=== PATIENT | male | born 1935 | race Caucasian/White ===

== ENCOUNTER 2016-11-20 06:02 | Inpatient (IN) | payer OTHER ==
[2016-11-20] MEDS ORDERED: NS 1,000 ML IV ONE ×3 (06:07→07:29)
[2016-11-20] MEDS ORDERED: ONDANSETRON 4 MG/2 ML VIAL IVP ONE (06:07)
--- NOTE | 2016-11-20 06:07 | EDPHY ---
H & P Source: Patient, EMS - Medical/Surgical History Hx Diabetes: Yes Hx Cardiac Disease: Yes Other PMH: HTN, Cabg, DM, chronic back pain, prostate issues, syncope - Social History Smoking Status: Former smoker <Claudio Chairez - Last Filed: 11/20/16 21:12> <Cholo Rebolledo - Last Filed: 11/22/16 07:17> HPI/ROS: HPI CHIEF COMPLAINT: Vomiting HISTORY OF PRESENT ILLNESS: this patient very pleasant 81-year-old male history atrial flutter, syncope, bradycardia, hypertension, hyperlipidemia, coronary artery disease, pacemaker, CABG, takes daily aspirin but denies taking any other blood thinners, presents emergency room by EMS at 6 o'clock in the morning for multiple episodes of vomiting. Patient tells me that he had a dental appointment had one of his front tooth worked on and was at home around 1 :00 a.m. he start having nausea and multiple episodes of vomiting. He tells me vomited 4 times. It was black tar a coffee ground. Denies having a black tarry bowel movement this morning. He states he has persistent nausea. He denies chest pain or shortness of breath. He did have some lightheadedness with dizziness earlier however this resolved. His main complaint at this time is nausea. Does take aspirin denies any other blood thinner, denies recent use of Motrin or Advil. Denies history of GI bleed or peptic ulcer disease. It is noted the history review of systems may be limited as the patient when I asked him what year it is tells me it is year 3000. Unknown if underlying cognitive decline ordered dementia. Past Medical History: Hypertension, hyperlipidemia, atrial flutter, syncope, bradycardia, coronary disease, pacemaker Past Surgical History: Left chest pacemaker, CABG Social History: Lives at [facility] Family History: Noncontributory ROS REVIEW OF SYSTEMS: A comprehensive 10 point review of systems is otherwise negative aside from elements mentioned in the history of present illness. Exam Constitutional triage nursing summary reviewed, vital signs reviewed, awake/ alert. Eyes normal conjunctivae and sclera, EOMI, PERRLA. HENT oropharynx dark black blood present throughout the oropharynx as well as around the mouth. normal inspection, atraumatic, moist mucus membranes, no epistaxis, neck supple/ no meningismus, no raccoon eyes. Respiratory clear to auscultation bilaterally, normal breath sounds, no respiratory distress, no wheezing. Cardiovascular rate normal, regular rhythm, no murmur, no edema, distal pulses normal. Gastrointestinal soft, non-tender, no rebound, no guarding, normal bowel sounds, no distension, no pulsatile mass. Genitourinary no CVA tenderness. Musculoskeletal no midline vertebral tenderness, full range of motion, no calf swelling, no tenderness of extremities, no meningismus, good pulses, neurovascularly intact. Skin pink, warm, & dry, no rash, skin atraumatic. Neurologic awake, alert and oriented x 3, AAOx3, moves all 4 extremities equally, motor intact, sensory intact, CN II-XII intact, normal cerebellar, normal vision, normal speech. Psychiatric normal mood/affect. Heme/Lymph/Immune no lymphadenopathy. Differential Diagnosis: Includes but is not limited to in a particular order, upper GI bleed, peptic ulcer disease, blood loss anemia, esophagitis, gastritis Medical Decision Making: This patient be placed on full air sampling and monitoring, patient have 2 large-bore IVs established. He will be typed and screened. He will need a chest x-ray and EKG. He will be started on Protonix bolus and Protonix drip. He is obviously having a GI bleed. He will need to be admitted for this. Re-evaluation: 0617: currently at this time this patient is hemodynamically stable no acute distress. Blood pressure stable. He is not actively vomiting blood at this time. Patient will need to be admitted to the hospital for GI bleed. Gastroenterology consult. 0629AM: There is no this patient's lactic acid upon arrival is 6.0. This is not indication of sepsis however this is indication of a series GI bleed. Patient has 2 large-bore IVs established receive a 2 L fluid bolus. Will check an H&H will be typed and screen. 0643: Re-examination at this time this patient remains hemodynamically stable blood pressure stable. He has not had any active bleeding here. His H&H have been reviewed his lactic acid is elevated at 6. This is not from sepsis most likely from GI bleed. He has received 2 L of fluid is been typed and screen. He is on Protonix drip and Protonix bolus. Patient be admitted to the step- down unit for close observation. His chest x-ray and CT scan are pending at this time. His abdomen is soft. 0700: I spoke with Dr. Tristan who will admit the patient. 0700: Spoke with Dr. Leon who will see the patient requests the patient be NPO. Plan for scope today. 0702: ED x-ray chest: one view: pacemaker present left chest, negative for acute cardiopulmonary disease. Image interpreted by myself. CT scan of the abdomen pelvis without IV contrast. The results of the study are no free air no evidence of duodenal ulcer perforation The study was read by Dr. Castro I viewed the images myself on the PACS system. 0728AM: Spoke with the patient's daughter at bedside she does tell me he has a longstanding history of alcohol use liver cirrhosis and has remote history of esophageal varices. Due to this new history will place the patient on octreotide drip just in case he has esophageal varices that is causing this hematemesis. Again at this time this patient is hemodynamically stable no active bleeding here vomiting of blood here. Patient be admitted to step-down unit for close observation GI has been consult hospitalist service been consult. Patient hemodynamically stable for Step-Down Unit. Is noted this patient's lactic acid was elevated 6 it is down to 4 after 2 L of normal saline IV fluid. He does not have elevated lactic due to sepsis is most likely a elevated lactic acid due to under profusion GI bleed. Patient signed over to Dr. Rebolledo at 7am shift change. At this time 7AM. Patient is hemodynamically stable. No active bleeding. Type and Screen. Lactic trending down. H/H stable. No vomiting blood. Getting IV Fluids. On 3rd Liter. HyperKalemia Treated with Insuling and fluids. Most likely HyperKalemia due to Acidosis/Dehydration/ GIB causing Acidosis due to Under Perfusion state. Critical Care: Total Critical Care Time Spent Managing this Patient: 65 Minutes. This time was spent Exclusively with this patient. This Care was exclusive of procedures. The Organ System/life at risk was Gastrointestinal, Cardiac. This Patient was in Critical Condition because Acute GIB, Hyperkalemia (Claudio Chairez) Constitutional: Initial Vital Signs Temperature (C) 36.6 C 11/20/16 06:02 Heart Rate 112 H 11/20/16 06:02 Respiratory Rate 16 11/20/16 06:02 Blood Pressure 101/69 11/20/16 06:02 O2 Sat (%) 92 11/20/16 06:02 O2 Delivery Mode Room Air O2 (L/minute) 2 Allergies/Adverse Reactions: Penicillins Allergy (Verified 11/20/16 08:29) Rash Home Medications: Medication Instructions Recorded Apixaban [Eliquis] 5 mg PO BID 02/03/16 Aspirin [Aspirin 81mg (*)] 81 mg PO DAILY 02/03/16 Insulin Glargine [Lantus 100 32 units SC DAILY 02/03/16 UNITS/ML (*)] Oxybutynin Chloride [Ditropan Xl] 10 mg PO HS 02/03/16 Pravastatin Sodium [Pravachol] 5 mg PO DAILY 02/03/16 metFORMIN HCL [Glucophage 500 mg 1,000 mg PO BIDMEAL 02/03/16 (*)] Acetaminophen [Tylenol ES 500 mg 1,000 mg PO HS 11/20/16 (*)] Lisinopril [Zestril 5 mg (*)] 5 mg PO DAILY 11/20/16 Medical Decision Making <Claudio Chairez - Last Filed: 11/20/16 21:12> <Cholo Rebolledo - Last Filed: 11/22/16 07:17> Other Provider: 0700: I took over care of this patient at shift change from Dr. Chairez. He is awaiting a bed upstairs for GI bleed. Potassium is elevated, but kidney function is normal. 1020: IV insulin drip and IV TXA administered. Dr. Leon, GI, assessed patient in the ED. He plans to take him for endoscopy tomorrow if his vitals remain stable. He had another episode of profuse coffee ground emesis while Dr. Leon was here. Patient has been admitted to Dr. Pedroza, hospitalist, but there are no beds available at this time so he will be boarding in the ED. 1104: I was called into the room emergently by RN for sudden abnormal rhythm and brief period of unconsciousness after vomiting. He is alert upon my assessment and tachycardic around 130. EKG is pending. Rhythm strip seems to show a period of time when his pacer stopped working during vomiting. 4mg IV Zofran administered. 1106: The 12 lead EKG was interpreted by myself. EKG is difficult to interpret. Looks like it may be a junctional tachycardia rate 118. Rhythm is no longer paced compared to EKG at 06:00 this morning. See hard copy and/or "tracemaster" electronic copy for interpretation. 1113: Consulted with Dr. Pedroza and updated her on patient condition. Dr. Castro, cardiology, will consult. Pacemaker reps have been contacted. 1125: Consulted with Dr. Castro. He reviewed EKGs. The patient's unpaced EKG shows accelerated junctional rhythm. Dr. Castro recommends Mg level and will follow his admission. 1143: Repeat ISTAT shows Na 143, K 4.8, Hct 27, and BGL 334. Plan to increase insulin drip from 6 to 10 units per hour with repeat ISTAT in 30 minutes. 1218: RN reports patient is becoming increasingly somnolent and has vomited another 500mL of coffee ground emesis. 1 unit PRBCs, 2 units FFP, and 1 unit platelets ordered. Patient has been crossed for 2 units PRBCs, but plan for 1 unit to start. Most recent ISTAT shows Hct 29. 1242: Consulted with Dr. Leon, GI, to update him on patient condition. 1340: FFP apparently got stuck in the tube system on its way from pharmacy, so patient has not received it yet and he is currently being transported to the floor. Accepting RN is aware patient still needs to receive FFP as soon as possible. Patient with the emergency department in the much more stable condition with better vital signs improved electrolytes and blood sugar and lactate. I spent a total of 3.5 hours of critical care time including but not limited to obtaining history, performing serial physical exams, ordering interventions and at the bedside monitoring those interventions, collecting and interpreting tests and discussion with numerous consultants (GI, Cardiology, Hospitalist, blood bank...) but not including time spent performing procedures. (Cholo Rebolledo) - Data Points Laboratory Results: Laboratory Results 11/20/16 06:15 11/20/16 06:15 Medications Given: Discontinued Medications Sodium Chloride (Ns) 1,000 mls @ 0 mls/hr IV ONCE ONE PRN Reason: Wide Open Stop: 11/20/16 06:08 Last Admin: 11/20/16 06:23 Dose: 1,000 mls Pantoprazole Sodium 40 mg/ (Sodium Chloride) 100 mls @ 200 mls/hr IV EDNOW ONE Stop: 11/20/16 06:37 Last Admin: 11/20/16 06:20 Dose: 100 mls Pantoprazole Sodium 80 mg/ (Sodium Chloride) 100 mls @ 10 mls/hr IV Q10H HANNAH Stop: 05/19/17 06:29 Last Admin: 11/20/16 06:48 Dose: 100 mls Sodium Chloride (Ns) 1,000 mls @ 0 mls/hr IV ONCE ONE PRN Reason: Wide Open Stop: 11/20/16 06:28 Last Admin: 11/20/16 06:40 Dose: 1,000 mls Phytonadione 10 mg/ Sodium (Chloride) 51 mls @ 102 mls/hr IV EDNOW ONE Stop: 11/20/16 07:19 Last Admin: 11/20/16 07:45 Dose: 51 mls Sodium Chloride (Ns) 1,000 mls @ 0 mls/hr IV ONCE ONE PRN Reason: Wide Open Stop: 11/20/16 07:30 Last Admin: 11/20/16 07:42 Dose: 1,000 mls Octreotide Acetate 500 mcg/ (Dextrose) 51 mls @ 2.5 mls/hr IV CONT HANNAH Stop: 05/19/17 09:29 Last Admin: 11/21/16 00:11 Dose: 51 mls Pantoprazole Sodium 80 mg/ (Sodium Chloride) 100 mls @ 10 mls/hr IV Q10H HANNAH Stop: 05/19/17 09:29 Last Admin: 11/20/16 15:02 Dose: Not Given Pantoprazole Sodium 80 mg/ (Sodium Chloride) 100 mls @ 10 mls/hr IV Q10H HANNAH Stop: 05/19/17 06:29 Last Admin: 11/20/16 10:44 Dose: 100 mls Insulin Human Regular 100 unit / Miscellaneous Medication 1 ea/ Sodium Chloride 101 mls @ 6 mls/hr IV EDNOW ONE PRN Reason: Protocol Stop: 11/21/16 03:09 Last Admin: 11/20/16 11:16 Dose: 101 mls Tranexamic Acid 1,000 mg/ (Sodium Chloride) 110 mls @ 660 mls/hr IV ONCE ONE Stop: 11/20/16 10:31 Last Admin: 11/20/16 10:40 Dose: 110 mls Tranexamic Acid 1,000 mg/ (Sodium Chloride) 510 mls @ 63.75 mls/hr IV ONCE ONE Stop: 11/20/16 18:21 Last Admin: 11/20/16 11:15 Dose: 510 mls Pantoprazole Sodium 80 mg/ (Sodium Chloride) 100 mls @ 10 mls/hr IV Q10H HANNAH Stop: 05/19/17 15:59 Last Admin: 11/21/16 15:31 Dose: Not Given Insulin Glargine (Lantus Syringe) 15 units SC ONCE ONE Stop: 11/21/16 16:31 Last Admin: 11/21/16 17:11 Dose: 15 units Insulin Human Regular (Humulin R) 8 unit SC ONCE ONE Stop: 11/20/16 07:36 Last Admin: 11/20/16 07:50 Dose: 8 units Insulin Human Regular (Humulin R) 5 unit IVP ONCE ONE Stop: 11/20/16 09:24 Last Admin: 11/20/16 09:49 Dose: 5 units Insulin Human Regular (Humulin R) 10 unit IVP EDNOW ONE Stop: 11/20/16 10:21 Last Admin: 11/20/16 11:15 Dose: 10 units Ondansetron HCl (Zofran) 4 mg IVP EDNOW ONE Stop: 11/20/16 06:08 Last Admin: 11/20/16 06:22 Dose: 4 mg Departure <Claudio Chairez - Last Filed: 11/20/16 21:12> <Cholo Rebolledo - Last Filed: 11/22/16 07:17> - Departure Disposition: [facility] Inpatient Acute Clinical Impression: Lactic acid acidosis, Hyperkalemia, Transfusion of blood during current hospitalization, Hyperglycemia, Atrial flutter with rapid ventricular response GI bleed Qualifiers: GI bleed type/associated pathology: unspecified gastrointestinal hemorrhage type Qualified Code(s): K92.2 - Gastrointestinal hemorrhage, unspecified Condition: Fair Report Scribed for: Cholo Rebolledo Report Scribed by: Ghazala Suárez Date of Report: 11/20/16 Time of Report: 11:19 <Cholo Rebolledo - Last Filed: 11/22/16 07:17>
[2016-11-20] MEDS ORDERED: PANTOPRAZOLE SODIUM 40 MG in NS 100 ML IV ONE (06:08)
[2016-11-20 06:27] LABS: % IMMATURE GRANULYOCYTES 0.4 % (0.0-1.1); ABSOLUTE IMMATURE GRANULOCYTES 0.03 10^3/uL (0.00-0.10); ADD DIFF? NO; ADD MORPH? NO; ADD SCAN? NO; ATYPICAL LYMPHOCYTE FLAG 10 (0-99); FRAGMENT RBC FLAG 0 (0-99); HEMATOCRIT 33.5 % (40.0-51.0); HEMOGLOBIN 12.1 g/dL (13.7-17.5); LEFT SHIFT FLG 10 (0-99); LIPEMIA HEMOLYSIS FLAG 90 (0-99); MEAN CELL HEMOGLOBIN CONCENTR. 36.1 g/dL (32.4-36.7); MEAN CELL VOLUME 99.7 fL (81.5-99.8); MEAN PLATELET VOLUME 9.4 fL (8.7-11.7); PLATELET CLUMPS FLAG 0 (0-99); PLATELET COUNT 151 10^3/uL (150-400); RED BLOOD CELL COUNT 3.36 10^6/uL (4.40-6.38); RED CELL DISTRIBUTION WIDTH 13.5 % (11.5-15.2)
--- NOTE | 2016-11-20 06:29 | CPEKG ---
Heart Rate: 108 RR Interval: 556 P-R Interval: 128 QRSD Interval: 150 QT Interval: 384 QTC Interval: 515 P [place]: -90 QRS [place]: -84 T Wave [place]: 87 EKG Severity - ABNORMAL ECG - EKG Impression: ATRIAL-SENSED VENTRICULAR-PACED RHYTHM Electronically Signed By: Adelso Amaya 25-Nov-2016 16:39:46
[2016-11-20] MEDS ORDERED: PANTOPRAZOLE SODIUM 80 MG in NS 100 ML IV SCH ×2 (06:30→09:30)
[2016-11-20 06:37] LABS: APTT 26.9 SEC (23.0-38.0); INR 1.41 (0.83-1.16); PROTIME(PATIENT) 17.2 SEC (12.0-15.0)
[2016-11-20 06:47] LABS: ALANINE AMINOTRANSFERASE 41 IU/L (21-72); ALKALINE PHOSPHATASE 93 IU/L (38-126); ANION GAP 12 mEq/L (8-16); ASPARTATE AMINOTRANSFERASE 41 IU/L (17-59); BILIRUBIN,TOTAL 1.6 mg/dL (0.1-1.4); BILIRUBIN-CONJUGATED 0.3 mg/dL (0.0-0.5); BILIRUBIN-UNCONJUGATED 1.3 mg/dL (0.0-1.1); CALCIUM 9.2 mg/dL (8.5-10.4); CARBON DIOXIDE 20 mEq/l (22-31); CHLORIDE 103 mEq/L (97-110); CREATININE 1.1 mg/dL (0.7-1.3); GLOMERULAR FILTRATION RATE > 60; GLUCOSE 420 mg/dL (70-100); SODIUM 135 mEq/L (134-144); TOTAL PROTEIN 5.1 g/dL (6.3-8.2)
[2016-11-20] MEDS ORDERED: PHYTONADIONE 10 MG in NS 50 ML IV ONE (06:50)
[2016-11-20 07:24] LABS: ANION GAP 12 mEq/L (8-16); CALCIUM 8.2 mg/dL (8.5-10.4); CARBON DIOXIDE 21 mEq/l (22-31); CHLORIDE 105 mEq/L (97-110); CREATININE 1.1 mg/dL (0.7-1.3); GLOMERULAR FILTRATION RATE > 60; GLUCOSE 396 mg/dL (70-100); POTASSIUM 5.9 mEq/L (3.5-5.2); SODIUM 138 mEq/L (134-144)
[2016-11-20] MEDS ORDERED: OCTREOTIDE ACETATE 500 MCG in D5W 50 ML IV SCH ×2 (07:30→09:30)
[2016-11-20] MEDS ORDERED: INSULIN REGULAR HUMAN 100 UNIT/ML SC ONE (07:35)
[2016-11-20 07:53] LABS: TROPONIN I 0.022 ng/mL (0-0.034)
[2016-11-20] MEDS ORDERED: ONDANSETRON 4 MG/2 ML VIAL IVP PRN (09:14)
[2016-11-20] MEDS ORDERED: D50W 25 GM/50 ML SYR IVP PRN (09:22)
[2016-11-20] MEDS ORDERED: INSULIN REGULAR HUMAN 100 UNIT/ML IVP ONE ×2 (09:23→10:20)
[2016-11-20 09:27] LABS: COLOR YELLOW; LEUKOCYTE ESTERASE,URINE NEGATIVE (NEGATIVE); NITRITE,URINE NEGATIVE (NEGATIVE)
[2016-11-20 09:31] LABS: MUCUS TRACE /lpf (NONE-1+)
[2016-11-20] MEDS ORDERED: INSULIN REGULAR HUMAN 100 UNIT/ML ONE (09:43)
--- NOTE | 2016-11-20 10:14 | GHP ---
[f rep st] HISTORY AND PHYSICAL DATE OF ADMISSION: 11/20/2016 CHIEF COMPLAINT: Coffee-grounds emesis. HISTORY OF PRESENT ILLNESS: The patient is a 81-year-old, with a history significant for dementia, atrial flutter on chronic anticoagulation, and previous history of alcohol use, with a history of es ophageal varices. He comes in today complaining of coffee-ground emesis. He said that yesterday he was feeling well. He had a dental appointment and had 1 of his front teeth worked on. He otherwis e had an uneventful day. He denies any history of abdominal complaints of nausea, vomiting, changes in his bowel movements. This morning at about 1 a.m. he woke up from sleep, and had multiple episo chai of what he describes as coffee-ground emesis. He says his emesis was black. He threw up 6 time s and he eventually fell to the floor. He is currently at [facility], and they came to see him and called an ambulance to bring him to the emergency department. Upon arrival here he was having some lightheadedness and dizziness initially, but that has since resolved. He has russell d no further significant emesis. I did review his clinic chart and apparently he has been complaini ng of waking up with some blood in his mouth for several months. He has had a CT scan to rule out h emoptysis. He has had a dental evaluation as noted above. At this time, the thought is it is comin g from his sinuses. The patient has multiple other medical issues, including coronary artery disease, uncontrolled diabe julio césar, hypertension, status post pacemaker placement, and a history of prostate cancer. He is on Eliq uis for anticoagulation as well as taking an aspirin daily. He denies any history of nonsteroidal a nti-inflammatory use. He has remote history of alcohol use, but has been sober for 20 years per his history. His last evaluation for esophageal varices was around 1995. REVIEW OF SYSTEMS: A 10-point review of systems was done and is otherwise unremarkable except as no marie in the HPI. Specifically, he denies any abdominal complaints, any changes in his bowel movement s, any changes in urination, although he has severe nocturia. PAST MEDICAL HISTORY: 1. Dementia. Currently living at [facility]. His daughter, Danielle, is his medical power of therapeutic case manager. 2. Atrial flutter status post pacemaker placement. On anticoagulation with Eliquis. 3. Hypertension. 4. Dyslipidemia. 5. History of prostate cancer status post prostatectomy. 6. History of alcoholism with esophageal varices, currently sober. 7. Coronary artery disease status post CABG. 8. Type 2 diabetes, uncontrolled, on Lantus and metformin. 9. Urinary frequency. 10. Osteoarthritis. PAST SURGICAL HISTORY: Includes cholecystectomy, coronary artery bypass graft, pacemaker, and shoul titi surgery. FAMILY HISTORY: Parents are . SOCIAL HISTORY: He has a history of heavy use; he currently denies alcohol use, but there was some question on the clinic chart of ongoing use. He is , has a history of dementia, and is curr ently at [facility]. He is a former tobacco user, quitting in 2004. His linsey ghter, Danielle, is who he wants me to talk to regarding any of his code status. CURRENT MEDICATIONS: Include aspirin, Eliquis 5 mg twice daily, Lantus 32 units daily, lisinopril 5 mg daily, metformin 1000 mg twice daily, pravastatin 10 mg daily, Tylenol as needed, and VESIcare 1 0 mg daily. ALLERGIES: To penicillin which causes a rash. PHYSICAL EXAM: VITAL SIGNS: Initial blood pressure was 101/69, currently 125/59, respirations 16, heart rate 101, oxygen is 92% on room air, 98% on 3 L nasal cannula. GENERAL: He is an elderly man in no obvious distress. He is alert and oriented x2. HEENT: Face is symmetric. He does have some dried blood around his lips. Pupils are equal. Extraocular movements intact. Face is symmetric. NECK: Supple. No obvious adenopathy. No carotid bruits. HEART: Tachycardic and regular. LUNGS: Clear bilaterally. ABDOMEN: Positive bowel sounds. Soft, no tenderness. No rebound or guarding . EXTREMITIES: No clubbing, cyanosis, or edema. He has brisk pulses bilateral lower extremities. MUSCULOSKELETAL: No obvious joint effusions or deformities noted. NEUROLOGIC: He is alert and or iented x2. Speech is fluent. He moves all 4 extremities. SKIN: No obvious ecchymoses. LABORATORY DATA: White count 8.4, hemoglobin 12.1 initially, repeat is 9, platelet count is 151. C oags show an INR of 1.4. Blood gas: Initial lactate 6, followup 4.6. Chemistry shows a potassium 6.1, chloride 106, BUN 49, creatinine 1.1. Glucose is 395. LFTs are no rmal with a total bilirubin of 1.6, most of that unconjugated. EKG shows a paced rhythm. ASSESSMENT AND PLAN: A 81-year-old, presents with coffee-grounds emesis, tachycardia,and anemia. P atient currently on aspirin and Eliquis for anticoagulation. He does not take nonsteroidal anti-inf lammatories. He has multiple comorbidities including heart disease, diabetes,and previous alcohol u se. 1. Probable upper gastrointestinal bleed. Vital signs stabilized after 3 L of normal saline. His last dose of Eliquis was last night and he took an aspirin yesterday. Plan will be to admit him to the step-down unit. Monitor serial hemoglobin and hematocrit. Transfusions will be tricky given hi s hyperkalemia; however, will attempt to keep him hemodynamically stable. GI has been consulted and plans on doing an upper endoscopy later this morning. 2. Hyperkalemia with mild chronic renal disease. He is on lisinopril which could cause some elevat ed potassium levels. Additionally he is hyperglycemic and his high potassium may be related to that . Plan will be to continue hydration, start insulin. If he does not improve soon may need to trans ition to an insulin drip. Follow potassiums as well as glucoses every 4 hours. 3. History of atrial flutter, status post pacemaker placement. On anticoagulation with Eliquis and aspirin. Will hold the Eliquis. Unfortunately there is no reversal agent at this time, and will m onitor him closely. I believe his last dose was last night. 4. Coronary artery disease status post coronary artery bypass graft (CABG), on aspirin daily. Will monitor his symptoms. Currently he is asymptomatic with no chest pain or shortness of breath. 5. Type 2 diabetes, uncontrolled. Has received subcu insulin and I have just given him a dose of I V insulin. Will monitor his blood sugars, put him on an insulin sliding scale, and consider transit ion to insulin drip if it is not controlled within the next couple hours. 6. Dementia. The patient has a history of dementia. Has missed some of his medicines in the past including insulin dosages. His daughter Danielle, is his medical power of therapeutic case manager. Will discuss dilan h her regarding code status. 7. Hypertension, currently stable. Holding his lisinopril due to his bleeding as well as his hyper kalemia. 8. Dyslipidemia, on a statin. 9. History of prostate cancer, status post prostatectomy. 10. History of alcoholism, decreased use 20 years ago with a history of esophageal varices. We zoila l place him on octreotide until we can delineate whether he has issues with esophageal varices curre ntly. 11. Deep vein thrombosis prophylaxis. Place SCDs. Patient is contraindicated to receive chemical prophylaxis at this time. /[id number]/MODL
[2016-11-20] MEDS ORDERED: INSULIN REGULAR HUMAN 100 UNIT, COSIGN. REQUIRED 1 EA in NS 100 ML IV ONE (10:20)
[2016-11-20] MEDS ORDERED: TRANEXAMIC ACID 1,000 MG in NS 100 ML IV ONE (10:22)
[2016-11-20] MEDS ORDERED: TRANEXAMIC ACID 1,000 MG in NS 500 ML IV ONE (10:22)
[2016-11-20] MEDS ORDERED: ONDANSETRON 4 MG/2 ML VIAL ONE (11:13)
--- NOTE | 2016-11-20 11:13 | CPEKG ---
Heart Rate: 118 RR Interval: 508 QRSD Interval: 120 QT Interval: 340 QTC Interval: 477 QRS [place]: 206 T Wave [place]: -64 EKG Severity - ABNORMAL ECG - EKG Impression: INCOMPLETE ANALYSIS DUE TO MISSING DATA IN PRECORDIAL LEAD(S) EKG Impression: JUNCTIONAL TACHYCARDIA EKG Impression: NONSPECIFIC INTRAVENTRICULAR CONDUCTION DELAY EKG Impression: PROBABLE INFERIOR INFARCT, AGE INDETERMINATE EKG Impression: ST DEPRESSION, CONSIDER ISCHEMIA, ANT-LAT LDS Electronically Signed By: Cholo Rebolledo 20-Nov-2016 14:51:44
--- NOTE | 2016-11-20 11:20 | CPEKG ---
Heart Rate: 102 RR Interval: 588 P-R Interval: 119 QRSD Interval: 158 QT Interval: 396 QTC Interval: 516 P [place]: 0 QRS [place]: -79 T Wave [place]: 86 EKG Severity - ABNORMAL ECG - EKG Impression: ATRIAL-SENSED VENTRICULAR-PACED COMPLEXES Electronically Signed By: Cholo Rebolledo 20-Nov-2016 14:51:44
[2016-11-20] MEDS: NS 1,000 ML IV SCH (14:59)
[2016-11-20] MEDS: INSULIN REGULAR HUMAN 100 UNIT/ML SC SCH ×3 (15:00→22:14)
[2016-11-20] MEDS: PANTOPRAZOLE SODIUM 80 MG in NS 100 ML IV SCH (15:23)
--- NOTE | 2016-11-20 16:45 | GCON ---
[f rep ] CONSULTATION DATE OF CONSULTATION: 11/20/2016 REFERRING PHYSICIAN: Cholo Rebolledo MD INDICATION FOR CONSULTATION: Upper GI bleed. HISTORY OF PRESENT ILLNESS: I have been asked by Dr. Rebolledo to see Mr. Savage in consultation for coffee-grounds emesis. The patient is a 81-year- old male with a history of dementia on long-term anticoagulation for atrial fib/ flutter, who has a history of alcohol use. He did have an EGD with some varices over a decade ago. I do not know if this was during a period of alcoholic hepatitis or if it truly is portal hypertension. He came into the emergency room complaining of coffee-ground emesis. He threw up multiple times and then fell to the floor. [facility] called an ambulance that brought him to the hospital. He does take Eliquis, which he took last night. He also takes a daily aspirin. He does not really complain of a lot of GI issues to my history, but he is somewhat demented, and I do not fully trust his history. It does state in the chart that he has been sober for 20 years, and that his EGD for varices was in 1995. He is now being admitted for an upper GI bleed. When he was in the ER, he had witnessed coffee-ground emesis; it was quite dilute, so I think majority of it was either gastric contents or saliva. I have been called to help evaluate and treat his upper GI bleed. PAST MEDICAL HISTORY: Dementia, atrial fib/flutter (status post permanent pacemaker), hypertension, dyslipidemia, history of prostate cancer (status post prostatectomy), coronary artery disease with past history of CABG, type 2 diabetes, osteoarthritis. PAST SURGICAL HISTORY: Besides the bypass and the pacemaker as noted above, he has had a cholecystectomy and shoulder surgery. FAMILY HISTORY: Unobtainable from the patient. SOCIAL HISTORY: By hospital chart, he was a heavy user of alcohol, but he has not drunk for a number of years. He quit smoking in 2004. MEDICATIONS: Home medications included Eliquis, Lantus, lisinopril, metformin, pravastatin, Tylenol, and VESIcare. In-hospital, his current medications include insulin drip, octreotide drip, Zofran p.r.n., pantoprazole drip. He got TXA in the ER per bleeding protocol. He also got a dose of vitamin K in the ER. He also got a unit of FFP, platelets , and packed cells. ALLERGIES: Penicillin = rash REVIEW OF SYSTEMS: Unobtainable secondary to his dementia. He did not remember vomiting when I spoke with him. PHYSICAL EXAMINATION: CONSTITUTIONAL: Elderly male sitting in his ER bed in no acute distress. VITAL SIGNS: Blood pressure 98/57, heart rate 98, respirations 14, 94% on 2 L, temperature 36.9. EYES: Anicteric, PERRL, EOMI. MOUTH: Some dried blood in his mucous membranes. NECK: Supple. No JVD. BACK : No spine tenderness. No CVA tenderness. LUNGS: Clear. CARDIAC: S1, S2. Irregularly irregular. No gallops or rubs appreciated. ABDOMEN: Bowel sounds are normal pitch and frequency. Soft, nontender. No hepatosplenomegaly by my exam. EXTREMITIES: No cyanosis, clubbing. NEUROLOGIC: He is alert. He is oriented to person, he knows he is in a hospital, but he could not tell me which one. He did not know the year. SKIN: No stigmata of advanced liver disease. No rashes. LABORATORY DATA: CBC from November 20 (today): WBC 8.38, hemoglobin 12.1, hematocrit 33.5, platelet count 151. Repeat H and H's have decreased to 9.2 and 27. In January 2016, his hemoglobin was 13.7, hematocrit 38.9. November 20 ProTime 17.2, INR 1.41, PTT 26.9. In November 2015 his PT is 14.7 and INR is 1.2. I do not know if this abnormal laboratory data represents his Eliquis. Liver enzymes from today: Total bili 1.6, AST 41, ALT 41, alk phos 93, albumin 3.0, total protein 5.1. Abdomen/pelvis CAT scan performed today at 6:28 in the morning: No pneumoperitoneum. No free air. Mild nonspecific regional enteritis in the left mid abdomen associated with mesenteric edema. Query ischemic bowel. No bowel obstruction or appendicitis. He does have a nodular liver with a hypertrophic lateral segment, characteristic of cirrhosis. Gallbladder is surgically absent. He does have some left nephrolithiasis and atherosclerosis of his abdominal aorta. ASSESSMENT: 1. Hematemesis, upper gastrointestinal bleed. 2. Posthemorrhagic anemia. 3. History of alcoholism with nodular liver on CT scan. 4. Elevated ProTime/INR. Unclear if that is related to his anticoagulation; however, he also has a normal platelet count on today's labs while historically he has had a platelet count below 120. 5. Dementia. 6. Mild electrolyte abnormalities. 7. Coronary artery disease. 8. Diabetes. 9. History of atrial fibrillation/atrial flutter. 10. Hypertension. 11. Dyslipidemia. RECOMMENDATIONS: 1. Serial H and H's. 2. Patient will need EGD if he has any significant decreased hemoglobin and hematocrit later today, obvious, bright red blood hematemesis, or becoming unstable and then will perform more on an emergency basis today. Otherwise, I will plan on EGD tomorrow after he has been off the Eliquis for over 36 hours. 3. Agree with PPI therapy. 4. Agree with octreotide for now, pending results of EGD. I think variceal bleed is less likely with his platelet count of greater than 120, but certainly possible with his cirrhotic-appearing liver. 5. Treatment of his diabetes, hypertension, and dyslipidemia as per manager casino and hospitalist. I had a discussion with the daughter regarding the procedure, benefits and risks , including bleeding, perforation, infection, and risk of medication. I had her sign an informed consent, which has been witnessed and placed into the patient's chart. Given the patient's multiple medical issues, the procedure will be a higher risk than normal. If we have to perform it on an emergency basis today, I would certainly ask Anesthesia to intubate him. If it is more elective tomorrow , I may still ask Anesthesia to give him sedation and monitor the patient during the procedure. A registered nurse will be present during the entire procedure, as well, to monitor the patient. He will be monitored with continuous EKG, oxygen saturation, and have a blood pressure every 5 minutes. Thank you for involving me in this patient's healthcare. Do not hesitate to call with any questions. Sincerely, /[id number]/MODL MTDD
--- NOTE | 2016-11-20 17:40 | GCON ---
[f rep st] CONSULTATION CARDIOLOGY CONSULTATION DATE OF CONSULTATION: 11/20/2016 REFERRING PHYSICIAN: Cholo Rebolledo MD REASON FOR CONSULTATION: Concern for possible pacemaker-mediated tachycardia, history of atrial flutter, new onset of upper gastrointestinal bleeding with coffee ground emesis in the setting of anticoagulation with Eliquis and aspirin. HISTORY OF PRESENT ILLNESS: The patient is a pleasant 81-year-old gentleman with a significant past medical history of coronary artery disease status post CABG, atrial flutter, history of sick sinus syndrome, status post permanent pacemaker implantation, hypertension, hyperlipidemia, history of alcoholism an esophageal varices, type 2 diabetes, and underlying dementia, who is a resident at [facility], who was in his usual state of health until approximately 1 o'clock this morning when he awoke and had multiple episodes of coffee-grounds emesis. He reports potentially 6 episodes of vomiting, at which point he collapsed to the floor. He was brought to [facility] for further evaluation. Of note, he did undergo a lengthy dental procedure yesterday. He has also had, per his daughter's report at the time of my evaluation, complaints of bloody sputum for the last several months. He denies any history of melena, dark tarry stools, or lower GI bleeding. Upon his admission, his rhythm was atrial sinus tachycardia with a V paced response. There was a single ECG tracing that was suggestive of possible pacemaker-mediated tachycardia. He underwent interrogation of his pacemaker, demonstrating normal device function with settings of DDDR at 60-130. Modifications of his pacemaker included increasing the PVARP from 275 milliseconds out to 375 milliseconds. The patient denies any complaints of palpitations, dizziness, lightheadedness, or syncope. He has no complaints of chest pain, chest pressure, shortness of breath, dyspnea, PND, orthopnea, or lower extremity edema. He has been compliant with his medications. He is closely followed by his primary mottler operator, Dr. Sy Savage, and his branch administrator, Dr. Ronald Schulte. Currently, at the time of my exam, he is resting comfortably in the ICU. He is currently without complaint. PAST MEDICAL HISTORY: 1. Dementia. 2. Atrial flutter. 3. History of sick sinus syndrome status post permanent pacemaker. 4. Hypertension. 5. Hyperlipidemia. 6. Coronary artery disease status post CABG. 7. History of prostate cancer status post prostatectomy. 8. History of alcoholism. 9. History of esophageal varices. 10. Type 2 diabetes. 11. Osteoarthritis. PAST SURGICAL HISTORY: Includes cholecystectomy, CABG, pacemaker, and shoulder surgery. MEDICATIONS ON ADMISSION: 1. Aspirin 81 mg daily. 2. Eliquis 5 mg p.o. b.i.d. 3. Lisinopril. 4. Metformin. 5. Pravastatin. 6. Tylenol p.r.n. ALLERGIES TO MEDICATIONS: Penicillin. SOCIAL HISTORY: He lives in independent living at [facility]. His daughter is with him at bedside today during my exam. He has a remote history of alcoholism. He is currently sober. FAMILY HISTORY: Noncontributory. EXAM: VITAL SIGNS: Blood pressure 123/35, heart rate 77, respiratory rate of 17, oxygen saturation 94% on 2 L, temperature 36.5. GENERAL: He is awake, alert, oriented, appropriate. Responds to questions appropriately. NECK: There is no evidence of JVP or carotid bruits. LUNGS: Clear to auscultation anteriorly. CARDIAC: S1, S2. Regular rhythm. No murmurs, rubs, or gallops. ABDOMEN: Soft, nontender, nondistended. There is no pulsatile mass or abdominal bruit. EXTREMITIES: He has no evidence of lower extremity edema. Distal pulses are intact. LABORATORY DATA: White blood cell count 8.38, and lowest hemoglobin on admission of 9.2, hematocrit of 27, MCV of 99.7, platelet count 151. INR 1.4. Sodium 138, potassium 5.9 (now down to 4.6), chloride 105, bicarb 21, BUN 46, creatinine 1.1, glucose 396. Calcium 8.2, total protein 5.1, albumin 3. ECG demonstrates A sensed/V paced at 108 beats per minute. Chest x-ray demonstrates mild bibasilar atelectasis. CT of the abdomen demonstrates cirrhosis. No perforated bowel. IMPRESSION: 1. Upper gastrointestinal bleeding with a known history of esophageal varices on anticoagulation and antiplatelet therapy in the setting of a history of atrial flutter, as well as coronary artery disease. 2. Atrial flutter. 3. Coronary artery disease. 4. Hypertension. 5. Hyperlipidemia. 6. Remote history of alcoholism. 7. History of esophageal varices. 8. History of pacemaker. The patient is a pleasant 81-year-old gentleman who lives at [facility] who presents with new onset of upper gastrointestinal bleeding and coffee-grounds emesis. ECG tracings and rhythm demonstrated what was concerning for possible pacemaker-mediated tachycardia. There is also evidence of a sinus tachycardia with a V paced response in the low 100. No associated syncope or near-syncope. Pacer interrogation demonstrated a normally functioning device. PVARP interval was expanded out to 375 milliseconds. Currently, at the time of my exam, he is in normal sinus rhythm. PLAN: 1. Hold aspirin and Eliquis. 2. NPO. 3. Plan for upper endoscopy tomorrow. 4. Will continue to monitor telemetry. 5. Will continue to follow along with his care. 30 minutes spent in consultation with Mr. Savage /[id number]/MODL SYLVIA
[2016-11-20 18:17] LABS: HEMATOCRIT 26.9 % (40.0-51.0); HEMOGLOBIN 9.8 g/dL (13.7-17.5)
[2016-11-20 20:49] LABS: HEMATOCRIT 24.9 % (40.0-51.0)
[2016-11-20 21:03] LABS: ANION GAP 8 mEq/L (8-16); CALCIUM 8.1 mg/dL (8.5-10.4); CARBON DIOXIDE 24 mEq/l (22-31); CHLORIDE 110 mEq/L (97-110); CREATININE 1.2 mg/dL (0.7-1.3); GLOMERULAR FILTRATION RATE 58; GLUCOSE 200 mg/dL (70-100); POTASSIUM 4.8 mEq/L (3.5-5.2); SODIUM 142 mEq/L (134-144)
[2016-11-21] MEDS: NS 1,000 ML IV SCH ×2 (00:11→09:20)
[2016-11-21 01:19] LABS: HEMATOCRIT 23.1 % (40.0-51.0); HEMOGLOBIN 8.2 g/dL (13.7-17.5)
[2016-11-21] MEDS: PANTOPRAZOLE SODIUM 80 MG in NS 100 ML IV SCH ×2 (01:19→15:31)
[2016-11-21 06:13] LABS: INR 1.27 (0.83-1.16); PROTIME(PATIENT) 15.9 SEC (12.0-15.0)
[2016-11-21 06:14] LABS: % IMMATURE GRANULYOCYTES 0.4 % (0.0-1.1); ABSOLUTE IMMATURE GRANULOCYTES 0.02 10^3/uL (0.00-0.10); ADD DIFF? NO; ADD MORPH? NO; ADD SCAN? NO; ALANINE AMINOTRANSFERASE 41 IU/L (21-72); ALBUMIN 2.3 g/dL (3.5-5.0); ALKALINE PHOSPHATASE 54 IU/L (38-126); ANION GAP 10 mEq/L (8-16); APTT 24.9 SEC (23.0-38.0); ASPARTATE AMINOTRANSFERASE 33 IU/L (17-59); ATYPICAL LYMPHOCYTE FLAG 10 (0-99); BILIRUBIN,TOTAL 0.9 mg/dL (0.1-1.4); CALCIUM 7.9 mg/dL (8.5-10.4); CARBON DIOXIDE 22 mEq/l (22-31); CHLORIDE 113 mEq/L (97-110); CREATININE 1.1 mg/dL (0.7-1.3); FRAGMENT RBC FLAG 0 (0-99); GLOMERULAR FILTRATION RATE > 60; GLUCOSE 201 mg/dL (70-100); HEMATOCRIT 23.3 % (40.0-51.0); HEMOGLOBIN 8.1 g/dL (13.7-17.5); LEFT SHIFT FLG 70 (0-99); LIPEMIA HEMOLYSIS FLAG 90 (0-99); MEAN CELL HEMOGLOBIN 34.3 pg (27.9-34.1); MEAN CELL HEMOGLOBIN CONCENTR. 34.8 g/dL (32.4-36.7); MEAN CELL VOLUME 98.7 fL (81.5-99.8); MEAN PLATELET VOLUME 9.2 fL (8.7-11.7); PLATELET CLUMPS FLAG 10 (0-99); PLATELET COUNT 96 10^3/uL (150-400); POTASSIUM 4.2 mEq/L (3.5-5.2); RED BLOOD CELL COUNT 2.36 10^6/uL (4.40-6.38); RED CELL DISTRIBUTION WIDTH 15.6 % (11.5-15.2); SODIUM 145 mEq/L (134-144); TOTAL PROTEIN 4.4 g/dL (6.3-8.2)
[2016-11-21] MEDS: INSULIN REGULAR HUMAN 100 UNIT/ML SC SCH ×4 (08:26→21:04)
--- NOTE | 2016-11-21 10:55 | PDCARPN ---
Cardiology Progress Note Chief Complaint: Mr. Savage remains hemodynamically stable this morning. Telemetery demonstrates primarily A sensed and V paced rhythm. No evidence of Pacer mediated tachycardia. BP is stable. No complaints of chest pain or sob. Hgb trended down overnight and is currently 8.1. He is off of Aspirin and Eliquis. Assessment/Plan: Assessment: 1. Upper GI bleed 2. Hx of Paroxysmal ATrial Flutter 3. SSS sp PPM 4. CAD Plan: -Aspirin and Eliquis discontinued for now -NPO for EGD this am -will continue to follow 11/21/16 10:53 Reviewed/Discussed With: family, multidisciplinary team Time Spent With Patient: 20 minutes Objective: Vital Signs (8 Hrs) Temp Pulse Resp BP Pulse Ox 11/21/16 08:00 36.8 C 77 16 119/48 L 95 11/21/16 06:00 72 14 120/36 L 98 11/21/16 04:00 36.8 C 67 15 119/40 L 96 11/21/16 03:00 88 19 115/53 L 96 Intake/Output (24 Hrs) 11/20/16 11/21/16 11/22/16 04:59 05:59 05:59 Intake Total Output Total 150 Balance -150 Intake: IV Intake (ml) IV Infused (ml) Ns 1,000 ml @ 125 mls/hr IV CONT HANNAH Rx#: [id number] Octreotide Acetate 500 mcg In D5w 50 ml @ 5 mls/ hr IV CONT HANNAH Rx#: [id number] Pantoprazole Sodium 80 mg In Ns 100 ml @ 10 mls/hr IV Q10H HANNAH Rx#: [id number] Tranexamic Acid 1,000 mg In Ns 100 ml @ 660 mls/hr IV ONCE ONE Rx#: [id number] Autologous Blood (ml) Fresh Frozen Plasma (ml) Packed Red Blood Cells ( ml) Platelets (ml) Output: Urine (ml) 150 Urinal 150 Estimated Blood Loss (ml) Emesis (ml) Other: Weight Number of Voids Number of Emesis Occurrences Result Diagrams: 11/21/16 05:50 11/21/16 05:50 Cardiac Labs: Cardiac Lab Results (72 Hrs) 11/20/16 11/20/16 06:55 06:55 Troponin I Cancelled 0.022 ICD10 Worksheet Patient Problems: Problems Problem Status Onset GI bleed Acute Hyperkalemia Acute Lactic acid acidosis Acute Transfusion of blood during current hospitalization Acute Atrial flutter Acute Bradycardia Acute Syncope Acute
[2016-11-21] MEDS ORDERED: PROPOFOL/EMULSION 500 MG/50 ML BOTTLE IV ONE (12:16)
[2016-11-21] MEDS ORDERED: LIDOCAINE 2% 100 MG/5 ML SYR ONE (12:16)
--- NOTE | 2016-11-21 12:32 | POSTOPPROG ---
Post Op Note Date of Operation: 11/21/16 Surgeon: Modesto Leon Anesthesiologist: Orly Anesthesia: Other (Specify) (IV general) Pre-op Diagnosis: ugi bleed, hematemesis, post hemorrhagic anemia Post-op Diagnosis: antral ulcer, clean based, prob small MWT Indication: coffeee ground emesis Procedure: EGD and bx Findings: prob small healing MWT, esophagitis, antral ulcer clean based Inf/Abcess present in the surg proc area at time of surgery?: No EBL: Minimal (few ml from bx) Complications: none immediate Specimen(s): 1) antral ulcer bx from margin of ulcer
--- NOTE | 2016-11-21 12:57 | GPN ---
[f rep st] PROCEDURE NOTE PROCEDURE: Esophagogastroduodenoscopy and biopsy. INDICATION: Hematemesis, posthemorrhagic anemia, presumed upper GI bleed with coffee-ground emesis. PREPROCEDURE DIAGNOSIS: Rule out peptic ulcer disease. POSTOPERATIVE DIAGNOSES: 1. Esophagitis versus small Bella-Sesay tear distal esophagus. 2. Clean based antral ulcer, status post biopsies of the margin of the ulcer. 3. Normal duodenal bulb and sweep with the exception of diverticulum present. INFORMED CONSENT: I had a discussed with the daughter regarding the procedure, alternatives, benefi ts, and risks including bleeding, perforation, infection, risk of medication. Informed consent was signed and witnessed. COMPLICATIONS: None immediate. MEDICATIONS: General anesthesia as per Dr. Wren. DESCRIPTION OF PROCEDURE: After adequate sedation, the forward viewing upper endoscope was inserted in the oropharynx and advanced under direct visualization down the esophagus. The proximal and mid esophagus were normal. In the distal esophagus, there was an area that I think was a healing Mallo ry-Sesay tear versus an area of esophagitis. I did not take any biopsies of this. The endoscope wa s advanced down into the stomach. There was no old or new blood in the stomach. There was a small amount of food debris present in the body greater curvature. The pylorus was normal. The duodenal bulb and sweep appeared normal. There was duodenal diverticulum present. There was no evidence of bleeding in the duodenum. The ampulla was well visualized. The endoscope was withdrawn back into [facility] stomach and a retroflex examination was performed. There was no evidence of gastric varices or a ny abnormality in the upper portion of the stomach. The endoscope was un-retroflexed and a small cl yasmin based antral ulcer was noted. I did take biopsies from the margins to make sure there is no janet dence of malignancy. The endoscope was then completely withdrawn, confirming the above findings. T he patient tolerated the procedure well and was transferred to the recovery room in satisfactory con dition. IMPRESSION: 1. Small Bella-Sesay tear versus esophagitis. 2. Antral ulcer clean based, status post biopsies. 3. Normal duodenal mucosa with duodenal diverticulum present. RECOMMENDATIONS: 1. Change to p.o. PPI p.o. b.i.d. for 4 weeks, then daily for another 4 weeks for 8 weeks of therap y. 2. If felt that the patient does need long-term anticoagulation for his Aflutter/AFib, can restart anticoagulation in the next day or so. 3. Advance diet to clear liquids and then regular later today or tomorrow. 4. If biopsies do not reveal any evidence of H pylori, check H pylori serology at some point in the future. If positive, treat for eradication and document eradication no sooner than 3 months after antibiotic therapy off PPIs for at least 2 weeks. 5. Primary care physician to decide about long-term prophylaxis. If H pylori is positive and eradi cated, the patient may not need any long-term prophylaxis; however, if he is going to be any anticoa gulation, 1 can consider either H2 or PPI. 6. Further recommendations to follow results of above and clinical course. Thank you for allowing me to participate in this patient's healthcare. Do not hesitate to call me w ith any questions. /[id number]/MODL
[2016-11-21] MEDS: PANTOPRAZOLE SODIUM 40 MG TAB PO SCH ×2 (15:20→19:56)
[2016-11-21] MEDS ORDERED: INSULIN GLARGINE 100 UNITS/ML SYRINGE SC ONE (16:30)
--- NOTE | 2016-11-21 16:34 | HOSPPROG ---
Hospitalist Progress Note Assessment/Plan: 81-year-old admitted with hematemesis found to have antral ulcer and Bella- Sesay tear. His course is complicated by anticoagulation with Eliquis on admission. # upper GI bleed status post endoscopy with findings noted in chart. Low risk for rebleed patient currently on twice daily Protonix and will continue per GI for at least 8 weeks. H pylori pending. Will gently advance diet today if his hemoglobin remains stable tomorrow and he is tolerating p.o. he can likely go home later tomorrow afternoon. # history of AFib/flutter status post pacemaker placement on long-term Eliquis. Currently on hold can resume this later on in the week after discharge. He should follow up with his primary care provider and dictating machine typist Dr. Savage to discuss long-term anticoagulation. At this time Dr. Leon feels low risk for rebleed and saved for resuming anticoagulation in the future however he should be on long-term acid suppression with an H2 kelly if he remains on anticoagulation. # coronary artery disease status post CABG currently on aspirin daily. This could potentiate his ulcer risk. Could discuss with Dr. Savage his dictating machine typist regarding ongoing aspirin versus changing to Plavix. In the meantime will hold his aspirin for a couple days and resume it until he sees Dr. Savage in follow-up. # hypertension # diabetes, uncontrolled at this time. * Resume Lantus * Continue sliding scale while in hospital * On discharge will resume his usual dose and follow up with Dr. Faustin as needed. # dyslipidemia # history of prostate cancer status post prostatectomy with ongoing urinary symptoms Subjective: Post endoscopy slightly sedated otherwise no complaints. Had a discussion regarding code status he wishes to be do not resuscitate Objective: Vital Signs Temp Pulse Resp BP Pulse Ox 36.5 C 64 16 198/37 H 100 11/21/16 13:15 11/21/16 13:15 11/21/16 13:15 11/21/16 13:15 11/21/16 13:15 Laboratory Results 11/21/16 05:50 11/21/16 05:50 11/20/16 11/21/16 11/22/16 04:59 05:59 05:59 Intake Total 250 Output Total 150 Balance 100 PT 15.9 SEC (12.0-15.0) H 11/21/16 05:50 INR 1.27 (0.83-1.16) H 11/21/16 05:50 - Physical Exam Constitutional: no apparent distress, chronically ill appearing Eyes: PERRL, EOMI Ears, Nose, Mouth, Throat: moist mucous membranes Cardiovascular: irregularly irregular Respiratory: no respiratory distress, no rales or rhonchi, clear to auscultation Gastrointestinal: normoactive bowel sounds, soft, non-tender abdomen, no palpable masses Genitourinary: no bladder fullness, No thomas in urethra Skin: warm Neurologic: No facial droop Psychiatric: interacting appropriately, not anxious ICD10 Worksheet Patient Problems: Problems Problem Status Onset Atrial flutter Acute Bradycardia Acute Syncope Acute GI bleed Acute Lactic acid acidosis Acute Hyperkalemia Acute Transfusion of blood during current hospitalization Acute
[2016-11-21] MEDS: OLANZapine DISINTEGR 5 MG TAB PO SCH (21:03)
[2016-11-22] MEDS: traZODone 50 MG TAB PO PRN ×2 (02:23→22:42)
[2016-11-22] MEDS: HYDROCODONE/APAP 10/325 TAB PO PRN ×4 (04:00→22:42)
[2016-11-22 08:04] LABS: HEMATOCRIT 25.6 % (40.0-51.0); HEMOGLOBIN 8.8 g/dL (13.7-17.5); MEAN CELL HEMOGLOBIN 35.5 pg (27.9-34.1); MEAN CELL HEMOGLOBIN CONCENTR. 34.4 g/dL (32.4-36.7); MEAN CELL VOLUME 103.2 fL (81.5-99.8); RED BLOOD CELL COUNT 2.48 10^6/uL (4.40-6.38); RED CELL DISTRIBUTION WIDTH 15.9 % (11.5-15.2)
[2016-11-22 08:38] LABS: ANION GAP 11 mEq/L (8-16); CALCIUM 8.4 mg/dL (8.5-10.4); CARBON DIOXIDE 19 mEq/l (22-31); CHLORIDE 116 mEq/L (97-110); GLOMERULAR FILTRATION RATE > 60; GLUCOSE 167 mg/dL (70-100); POTASSIUM 3.8 mEq/L (3.5-5.2); SODIUM 146 mEq/L (134-144)
[2016-11-22] MEDS ORDERED: INSULIN GLARGINE 100 UNITS/ML SYRINGE SC SCH (09:00)
[2016-11-22] MEDS: INSULIN REGULAR HUMAN 100 UNIT/ML SC SCH ×4 (09:39→21:45)
[2016-11-22] MEDS: PANTOPRAZOLE SODIUM 40 MG TAB PO SCH ×2 (09:40→19:50)
[2016-11-22] MEDS: INSULIN GLARGINE 100 UNITS/ML SYRINGE SC SCH (10:21)
[2016-11-22] MEDS ORDERED: QUEtiapine FUMARATE 25 MG TAB PO PRN (10:53)
--- NOTE | 2016-11-22 10:53 | HOSPPROG ---
Hospitalist Progress Note Assessment/Plan: 81-year-old admitted with hematemesis found to have antral ulcer and Bella- Sesay tear. His course is complicated by anticoagulation with Eliquis on admission. Had increased agitation last night and rarely slept. # likely dementia exacerbated by hospitalization and sedation. I had a long discussion with the patient's daughter regarding likely dementia diagnosis. We talked about other sedating medications at night so he can sleep including Seroquel which has a black box warning. She is okay using it given the fact that his quality of life is pretty low at this time especially when he does not sleep. We also discussed his code status again. * Patient may need rehab at this point due to his mental status changes and weakness. And transition to assisted living. Daughter will talk with case work aide * Trial of Seroquel at nighttime for sleep # upper GI bleed status post endoscopy with findings noted in chart. Low risk for rebleed patient currently on twice daily Protonix and will continue per GI for at least 8 weeks. H pylori pending. Hemoglobin stable. # history of AFib/flutter status post pacemaker placement on long-term Eliquis. Currently on hold can resume this later on in the week after discharge. He should follow up with his primary care provider and enrober Dr. Savage to discuss long-term anticoagulation. At this time Dr. Leon feels low risk for rebleed and saved for resuming anticoagulation in the future however he should be on long-term acid suppression with an H2 kelly if he remains on anticoagulation. # coronary artery disease status post CABG currently on aspirin daily. This could potentiate his ulcer risk. Could discuss with Dr. Savage his enrober regarding ongoing aspirin versus changing to Plavix. In the meantime will hold his aspirin for a couple days and resume it until he sees Dr. Savage in follow-up. # hypertension # diabetes, uncontrolled at this time. * Resume Lantus * Continue sliding scale while in hospital * On discharge will resume his usual dose and follow up with Dr. Faustin as needed. # dyslipidemia # history of prostate cancer status post prostatectomy with ongoing urinary symptoms Subjective: Had some agitation last night and needed a sitter. Denies any pain eating better today. Has much more confusion after the procedure than previously. Objective: Vital Signs Temp Pulse Resp BP Pulse Ox 36.7 C 80 12 119/54 L 96 11/22/16 08:00 11/22/16 08:00 11/22/16 08:00 11/22/16 08:00 11/22/16 08:00 Laboratory Results 11/22/16 07:55 11/22/16 07:55 11/21/16 11/22/16 11/23/16 05:59 05:59 05:59 Intake Total 1887 Output Total 650 Balance 1237 PT 15.9 SEC (12.0-15.0) H 11/21/16 05:50 INR 1.27 (0.83-1.16) H 11/21/16 05:50 - Time Spent With Patient Time Spent with Patient: greater than 35 minutes (Patient's prognosis.) Time Spent with Patient: Greater than 35 minutes spent on this patients care, greater than 50% of time spent counseling, educating, and coordinating care regarding the above mentioned plan. - Physical Exam Constitutional: no apparent distress, chronically ill appearing Eyes: PERRL, EOMI Ears, Nose, Mouth, Throat: moist mucous membranes, hard of hearing Cardiovascular: regular rate and rhythym, systolic murmur Respiratory: no respiratory distress, no rales or rhonchi, clear to auscultation Gastrointestinal: normoactive bowel sounds, soft, non-tender abdomen, no palpable masses Genitourinary: no bladder fullness Skin: warm, normal color Musculoskeletal: generalized weakness Neurologic: No AAOx3 Psychiatric: poor memory ICD10 Worksheet Patient Problems: Problems Problem Status Onset Atrial flutter Acute Bradycardia Acute Syncope Acute GI bleed Acute Lactic acid acidosis Acute Hyperkalemia Acute Transfusion of blood during current hospitalization Acute Hyperglycemia Acute Atrial flutter with rapid ventricular response Acute
--- NOTE | 2016-11-22 11:38 | SOAPPROG ---
SOAP Progress Note Assessment/Plan: Assessment:Plan: 1) UGI bleed form Antral ulcer +/- MWT - no more overt bleeding Hb up and BUN/ Cr ratio down c/w no more bleeding - on PPI 2) Anemia - improving, no need for PRBC recs: PPI po BID for 4 weeks, then daily for 4 more weeks. eval for h pylori (bx pending, if neg then AB) PCP to consider termite control service representative prophylaxis and need for termite control service representative anti-coagulation - - see EGD note for rec's will sign off 11/22/16 11:39 Subjective: CC- UGI bleed form also MWT pt a bit confused this am has no gi complaints does have some mild back pain no n/v Objective: Vital Signs Temp Pulse Resp BP Pulse Ox 36.7 C 84 16 122/51 H 93 11/22/16 11:28 11/22/16 11:28 11/22/16 11:28 11/22/16 11:28 11/22/16 11:28 Laboratory Results 11/22/16 07:55 11/22/16 07:55 11/21/16 11/22/16 11/23/16 05:59 05:59 05:59 Intake Total 1887 Output Total 650 Balance 1237 PT 15.9 SEC (12.0-15.0) H 11/21/16 05:50 INR 1.27 (0.83-1.16) H 11/21/16 05:50 alert but oriented only to person S1S2, RRR +Bs, soft, nt CTA Laboratory Tests 11/21/16 11/21/16 11/21/16 01:03 05:50 05:50 Hgb 8.2 L 8.1 L Hct 23.1 L 23.3 L BUN 58 H Creatinine 1.1 11/22/16 11/22/16 07:55 07:55 Hgb 8.8 L Hct 25.6 L BUN 35 H Creatinine 1.0 ICD10 Worksheet Patient Problems: Problems Problem Status Onset Atrial flutter with rapid ventricular response Acute GI bleed Acute Hyperglycemia Acute Hyperkalemia Acute Lactic acid acidosis Acute Transfusion of blood during current hospitalization Acute Atrial flutter Acute Bradycardia Acute Syncope Acute
[2016-11-22 12:40] LABS: GLUCOSE 321 mg/dL (70-100)
--- NOTE | 2016-11-22 13:24 | PDCARPN ---
Cardiology Progress Note Chief Complaint: N/A Assessment/Plan: Assessment: Alejandro is a 81 y/o M with a history of PAFL admitted with a upper GI bleed. EGD yesterday showed a ulcer and Bella Sesay Tear. He H/H has been stable over 24 hours. Eliquis and Aspirin are on hold. His other history includes, CAD s/p CABG, HLP, HTN, and SSS s/p pacer. Pt has had trouble sleeping which is causing worsening dementia. Pt is currently sleeping. Plan: 1. PAFL- In NSR by his most recent EKG. His last pacer interrogation showed <1 % aflutter burden 08/2016. Aspirin and Eliquis are currently on hold. He has a CHADS VASc score of 5 and therefore I would recommend resuming Eliquis tomorrow AM. Per GI ok to begin in 1-2 from the time of his EGB and rebleed unlikely. H/H is stable. 2. CAD s/p CABG and normal nuc in 01/2016. 3. SSS s/p pacer 4. upper GI bleed- h/h stable. On PPI and will need to continue if Eliquis is resumed. 5. HTN- well controlled. Pt should follow up with Dr. Savage in 1-2 weeks to discuss marine oil terminal superintendent anticoagulation. Will sign-off 11/22/16 13:28 Subjective: Pt has had trouble sleeping and is currently sleeping. He was not woken up. Objective: Vital Signs (8 Hrs) Temp Pulse Resp BP Pulse Ox 11/22/16 11:28 36.7 C 84 16 122/51 H 93 11/22/16 10:00 75 129/64 H 93 11/22/16 08:00 36.7 C 80 12 119/54 L 96 Intake/Output (24 Hrs) 11/21/16 11/22/16 11/23/16 05:59 05:59 05:59 Intake Total 1887 700 Output Total 650 100 Balance 1237 600 Intake: Oral (ml) 500 700 IV Intake (ml) 1387 IV Infused (ml) Ns 1,000 ml @ 125 mls/hr IV CONT [facility] Rx#: [id number] Octreotide Acetate 500 mcg In D5w 50 ml @ 5 mls/ hr IV CONT [facility]NA[facility] Rx#: [id number] Pantoprazole Sodium 80 mg In Ns 100 ml @ 10 mls/hr IV Q10H [facility] Rx#: [id number] Tranexamic Acid 1,000 mg In Ns 100 ml @ 660 mls/hr IV ONCE ONE Rx#: [id number] Autologous Blood (ml) Fresh Frozen Plasma (ml) Packed Red Blood Cells ( ml) Platelets (ml) Output: Urine (ml) 650 100 Urinal 650 100 Estimated Blood Loss (ml) 0 Emesis (ml) Other: Weight Intake Quantity Yes Sufficient Number of Voids Toilet 1 1 Urinal 1 1 Number of Stools Urinal 1 Number of Emesis Occurrences Result Diagrams: 11/22/16 07:55 11/22/16 12:05 Cardiac Labs: Cardiac Lab Results (72 Hrs) 11/20/16 11/20/16 06:55 06:55 Troponin I Cancelled 0.022 - Physical Exam Constitutional: other (sleeping) ICD10 Worksheet Patient Problems: Problems Problem Status Onset Atrial flutter with rapid ventricular response Acute GI bleed Acute Hyperglycemia Acute Hyperkalemia Acute Lactic acid acidosis Acute Transfusion of blood during current hospitalization Acute Atrial flutter Acute Bradycardia Acute Syncope Acute
[2016-11-22] MEDS: OLANZapine DISINTEGR 5 MG TAB PO SCH (19:50)
[2016-11-23] MEDS: HYDROCODONE/APAP 10/325 TAB PO PRN ×2 (01:42→20:29)
[2016-11-23 06:08] LABS: HEMATOCRIT 21.2 % (40.0-51.0); HEMOGLOBIN 7.2 g/dL (13.7-17.5); MEAN CELL HEMOGLOBIN 35.5 pg (27.9-34.1); MEAN CELL VOLUME 104.4 fL (81.5-99.8); RED BLOOD CELL COUNT 2.03 10^6/uL (4.40-6.38); RED CELL DISTRIBUTION WIDTH 15.8 % (11.5-15.2)
[2016-11-23 06:42] LABS: ANION GAP 7 mEq/L (8-16); CALCIUM 8.1 mg/dL (8.5-10.4); CARBON DIOXIDE 21 mEq/l (22-31); CHLORIDE 116 mEq/L (97-110); GLOMERULAR FILTRATION RATE > 60; GLUCOSE 127 mg/dL (70-100); POTASSIUM 3.7 mEq/L (3.5-5.2); SODIUM 144 mEq/L (134-144)
[2016-11-23 08:47] LABS: HEMATOCRIT 24.6 % (40.0-51.0); HEMOGLOBIN 8.4 g/dL (13.7-17.5)
[2016-11-23] MEDS: INSULIN REGULAR HUMAN 100 UNIT/ML SC SCH ×4 (08:54→22:51)
[2016-11-23] MEDS: INSULIN GLARGINE 100 UNITS/ML SYRINGE SC SCH (08:54)
[2016-11-23] MEDS: PANTOPRAZOLE SODIUM 40 MG TAB PO SCH ×2 (08:55→20:30)
--- NOTE | 2016-11-23 15:58 | HOSPPROG ---
Hospitalist Progress Note Assessment/Plan: 81-year-old admitted with hematemesis found to have antral ulcer and Bella- Sesay tear. His course is complicated by anticoagulation with Eliquis on admission. Had increased agitation since his endoscopy tends to be worse at night and he has significantly worse confusion during the day # likely dementia exacerbated by hospitalization and sedation. I had a long discussion with the patient's daughter regarding likely dementia diagnosis on . We talked about other sedating medications at night so he can sleep including Seroquel which has a black box warning. She is okay using it given the fact that his quality of life is pretty low at this time especially when he does not sleep. We also discussed his code status again. He did not receive Seroquel last night but received trazodone and Zyprexa, he is quite sedated today * Patient may need rehab at this point due to his mental status changes and weakness. And transition to assisted living. Daughter will talk with outpatient case manager. Currently he is set to go to [facility] but needs to be without a sitter for greater than 24 hours prior to transfer * Trial of Seroquel at nighttime for sleep, will discontinue trazodone and Zyprexa. * Consider adding Aricept either now or as outpatient. * Minimize centrally acting medications * If mental status continues to decline consider noncontrast CT of head, currently he exhibits no focal changes and I suspect it is due to anesthesia # upper GI bleed status post endoscopy with findings noted in chart. Low risk for rebleed patient currently on twice daily Protonix and will continue per GI for at least 8 weeks. H pylori pending. Hemoglobin stable. # history of AFib/flutter status post pacemaker placement on long-term Eliquis. Currently on hold can resume this later on in the week after discharge. He should follow up with his primary care provider and cloud subject matter expert Dr. Savage to discuss long-term anticoagulation. At this time Dr. Leon feels low risk for rebleed and saved for resuming anticoagulation in the future however he should be on long-term acid suppression with an H2 kelly if he remains on anticoagulation. # coronary artery disease status post CABG currently on aspirin daily. This could potentiate his ulcer risk. Could discuss with Dr. Savage his cloud subject matter expert regarding ongoing aspirin versus changing to Plavix. In the meantime will hold his aspirin for a couple days and resume it until he sees Dr. Savage in follow-up. # hypertension # diabetes, uncontrolled at this time. * Resume Lantus * Continue sliding scale while in hospital * On discharge will resume his usual dose and follow up with Dr. Faustin as needed. # dyslipidemia # history of prostate cancer status post prostatectomy with ongoing urinary symptoms Disposition: Patient to transfer to [facility] for rehab after this hospitalization. From a GI standpoint he is stable, unfortunately he has had altered mental status stemming after his procedures. This is likely due to his dementia, new environment and anesthesia he has needed a sitter last night and today. Will add Seroquel and if he is able does better without a sitter he can be transferred to [facility]. I think with time he should improve slowly Subjective: Quite sedated and confused today a little worse than yesterday Objective: Vital Signs Temp Pulse Resp BP Pulse Ox 36.8 C 80 16 130/53 H 92 11/23/16 11:57 11/23/16 11:57 11/23/16 11:57 11/23/16 11:57 11/23/16 11:57 Laboratory Results 11/23/16 08:35 11/23/16 05:40 11/22/16 11/23/16 11/24/16 05:59 05:59 05:59 Intake Total 1887 1200 Output Total 650 800 Balance 1237 400 PT 15.9 SEC (12.0-15.0) H 11/21/16 05:50 INR 1.27 (0.83-1.16) H 11/21/16 05:50 - Physical Exam Constitutional: not in pain, chronically ill appearing, unkempt Eyes: PERRL Ears, Nose, Mouth, Throat: moist mucous membranes Cardiovascular: regular rate and rhythym Respiratory: no respiratory distress, no rales or rhonchi, clear to auscultation , reduced air movement Gastrointestinal: normoactive bowel sounds, soft, non-tender abdomen Genitourinary: no bladder fullness Skin: warm Neurologic: No AAOx3, No facial droop Psychiatric: encephalopathic, No interacting appropriately ICD10 Worksheet Patient Problems: Problems Problem Status Onset Atrial flutter Acute Bradycardia Acute Syncope Acute GI bleed Acute Lactic acid acidosis Acute Hyperkalemia Acute Transfusion of blood during current hospitalization Acute Hyperglycemia Acute Atrial flutter with rapid ventricular response Acute
[2016-11-23] MEDS: QUEtiapine FUMARATE 25 MG TAB PO PRN (20:51)
[2016-11-24] MEDS: HYDROCODONE/APAP 10/325 TAB PO PRN ×3 (00:49→19:30)
[2016-11-24] MEDS: QUEtiapine FUMARATE 25 MG TAB PO PRN (02:03)
[2016-11-24 05:08] LABS: HEMATOCRIT 24.1 % (40.0-51.0); HEMOGLOBIN 8.3 g/dL (13.7-17.5); MEAN CELL HEMOGLOBIN 35.8 pg (27.9-34.1); MEAN CELL HEMOGLOBIN CONCENTR. 34.4 g/dL (32.4-36.7); MEAN CELL VOLUME 103.9 fL (81.5-99.8); RED BLOOD CELL COUNT 2.32 10^6/uL (4.40-6.38); RED CELL DISTRIBUTION WIDTH 15.4 % (11.5-15.2)
[2016-11-24 05:29] LABS: ANION GAP 6 mEq/L (8-16); CALCIUM 8.1 mg/dL (8.5-10.4); CARBON DIOXIDE 25 mEq/l (22-31); CHLORIDE 116 mEq/L (97-110); GLOMERULAR FILTRATION RATE > 60; GLUCOSE 103 mg/dL (70-100); POTASSIUM 3.5 mEq/L (3.5-5.2); SODIUM 147 mEq/L (134-144)
[2016-11-24] MEDS: PANTOPRAZOLE SODIUM 40 MG TAB PO SCH ×2 (08:48→22:41)
[2016-11-24] MEDS: INSULIN GLARGINE 100 UNITS/ML SYRINGE SC SCH (09:33)
[2016-11-24] MEDS: INSULIN REGULAR HUMAN 100 UNIT/ML SC SCH ×4 (09:33→22:41)
--- NOTE | 2016-11-24 13:05 | HOSPPROG ---
Hospitalist Progress Note Assessment/Plan: 81-year-old admitted with hematemesis found to have antral ulcer and Bella- Sesay tear. His course is complicated by anticoagulation with Eliquis on admission. Had increased agitation since his endoscopy - confusion improving overnight # Suspected dementia exacerbated by hospitalization and sedation- avoided sedating medications in past 24 hours beyond 12.5mg of Seroquel overnight patient remained very restless overnight- however far more alert and oriented this am A&O x1 but awake and conversant - agree with plans for [facility] - cont seroquel Qpm - Consider adding Aricept - continue Minimizing centrally acting medications # Acute upper GI bleed status post endoscopy - with antral ulcer and possible Bella Sesay tear -Low risk for rebleed - H pylori negative- H&H stable - continue twice daily Protonix for at least 8 weeks # history of AFib/flutter status post pacemaker placement on long-term Eliquis EKG (personally reviewed and interpreted) A sensed V-paced- oxygen saturations 95% on RA - will restart the week after discharge. - He should follow up with his primary care provider and rx specialist Dr. Savage to discuss long-term anticoagulation. - Dr. Leon feels he should be on long-term acid suppression with an H2 kelly if he remains on anticoagulation. # coronary artery disease status post CABG currently on aspirin daily. This could potentiate his ulcer risk. - Could discuss with Dr. Savage his rx specialist regarding ongoing aspirin versus changing to Plavix. - will resumeafter discharge - until he sees Dr. Savage in follow-up. # hypertension # diabetes, uncontrolled at this time. - Resume Lantus - Continue sliding scale while in hospital - On discharge will resume his usual dose and follow up with Dr. Faustin as needed. # dyslipidemia # history of prostate cancer status post prostatectomy with ongoing urinary symptoms Disposition-Patient to transfer to [facility] for rehab after this hospitalization - mental status improved this am hopeful for transfer tomorrow if remains stable today. I have discussed the case with RN - avoiding all sedating medications and reorienting - patient taking good PO with assistance Subjective: denies pain Objective: Vital Signs Temp Pulse Resp BP Pulse Ox 36.8 C 94 18 148/59 H 95 11/24/16 11:20 11/24/16 11:20 11/24/16 11:20 11/24/16 11:20 11/24/16 11:20 Laboratory Results 11/24/16 04:38 11/24/16 04:38 11/23/16 11/24/16 11/25/16 05:59 05:59 05:59 Intake Total 1200 200 Output Total 800 200 Balance 400 0 PT 15.9 SEC (12.0-15.0) H 11/21/16 05:50 INR 1.27 (0.83-1.16) H 11/21/16 05:50 - Physical Exam Constitutional: appears nourished Eyes: anicteric sclera Ears, Nose, Mouth, Throat: moist mucous membranes Cardiovascular: regular rate and rhythym, systolic murmur Respiratory: no respiratory distress Gastrointestinal: normoactive bowel sounds, soft, non-tender abdomen Genitourinary: no bladder fullness Skin: warm, normal color Musculoskeletal: No asymmetric calves Neurologic: No AAOx3 Psychiatric: No agitated Lymph, Heme, Immunologic: no cervical LAD ICD10 Worksheet Patient Problems: Problems Problem Status Onset Atrial flutter with rapid ventricular response Acute GI bleed Acute Hyperglycemia Acute Hyperkalemia Acute Lactic acid acidosis Acute Transfusion of blood during current hospitalization Acute Atrial flutter Acute Bradycardia Acute Syncope Acute
[2016-11-24] MEDS: LISINOPRIL 5 MG TAB PO SCH (13:30)
[2016-11-24] MEDS ORDERED: NON-FORMULARY NEW DRUG (Oxybutynin Chloride [Ditropan Xl] 10 MG) PO SCH (21:00)
[2016-11-24] MEDS: OXYBUTYNIN 5 MG EXT REL TAB PO SCH (22:41)
--- NOTE | 2016-11-24 23:25 | HOSPPROG ---
Hospitalist Progress Note Assessment/Plan: Called to bedside by RN celi he stated he wanted to kill himself at midnight. I asked him why and he stated, because he was treated poorly here in hospital the other night. When I asked again, he said "I will kill myself at midnight, because I am committed to it. I don't know how, but I will do it". He said that he was treated better today in the hospital, but still wanted to end his life. Gen: NAD Neuro: no focal deficits Psych: alert to self only A&P: 1. Suicidal ideation: suspect that acute encephalopathy/delirium/delusions playing a role. But, he is persistent with the statement that he will find a way to kill himself here, thus place a sitter 04/04 and now on mental hold. Reassess in morning. Objective: Vital Signs Temp Pulse Resp BP Pulse Ox 36.4 C 88 20 109/55 L 94 11/24/16 20:00 11/24/16 20:00 11/24/16 20:00 11/24/16 20:00 11/24/16 20:00 Laboratory Results 11/24/16 04:38 11/24/16 04:38 11/23/16 11/24/16 11/25/16 05:59 05:59 05:59 Intake Total 9261 231 8015 Output Total 086 955 9937 Balance 400 0 1975 PT 15.9 SEC (12.0-15.0) H 11/21/16 05:50 INR 1.27 (0.83-1.16) H 11/21/16 05:50 ICD10 Worksheet Patient Problems: Problems Problem Status Onset Atrial flutter with rapid ventricular response Acute GI bleed Acute Hyperglycemia Acute Hyperkalemia Acute Lactic acid acidosis Acute Transfusion of blood during current hospitalization Acute Atrial flutter Acute Bradycardia Acute Syncope Acute
[2016-11-25 05:00] LABS: HEMATOCRIT 23.2 % (40.0-51.0); HEMOGLOBIN 8.2 g/dL (13.7-17.5)
[2016-11-25] MEDS: INSULIN REGULAR HUMAN 100 UNIT/ML SC SCH ×2 (09:03→13:00)
[2016-11-25] MEDS: LISINOPRIL 5 MG TAB PO SCH (09:17)
[2016-11-25] MEDS: PANTOPRAZOLE SODIUM 40 MG TAB PO SCH ×2 (09:18→19:55)
[2016-11-25] MEDS: PRAVASTATIN SODIUM 10 MG TAB PO SCH (09:18)
[2016-11-25] MEDS: INSULIN GLARGINE 100 UNITS/ML SYRINGE SC SCH (09:43)
--- NOTE | 2016-11-25 15:47 | HOSPPROG ---
Hospitalist Progress Note Assessment/Plan: 81-year-old admitted with hematemesis found to have antral ulcer and Bella- Sesay tear. His course is complicated by anticoagulation with Eliquis on admission. Had increased agitation since his endoscopy - confusion improving over past 48 hours # acute expression of suicidal ideation- patient with suspected dementia - consulting inpatient switch crew supervisor for assistance on medications and management # Suspected dementia exacerbated by hospitalization and sedation- avoided sedating medications in past 48 hours beyond 12.5mg of Seroquel overnight patient remained very restless overnight- however far more alert and oriented this am A&O x1 but awake and conversant - agree with plans for [facility] - cont seroquel Qpm- until reviewed by Psychiatry - Consider adding Aricept - continue Minimizing other centrally acting medications # Acute upper GI bleed status post endoscopy - with antral ulcer and possible Bella Sesay tear -Low risk for rebleed - H pylori negative- H&H stable 05/04 - continue twice daily Protonix for at least 8 weeks # history of AFib/flutter status post pacemaker placement on long-term Eliquis tele (personally reviewed and interpreted) A sensed V-paced- oxygen saturations 95% on RA - will restart the week after discharge. - He should follow up with his primary care provider and piper helper Dr. Savage to discuss long-term anticoagulation. - Dr. Leon feels he should be on long-term acid suppression with an H2 kelly if he remains on anticoagulation. # coronary artery disease status post CABG currently on aspirin daily. This could potentiate his ulcer risk. - Could discuss with Dr. Savage his piper helper regarding ongoing aspirin versus changing to Plavix. - will resume after discharge - until he sees Dr. Savage in follow-up. # hypertension # diabetes, blood sugars 99-> 350 overnight - morning blood sugar is appropriate patient's sugars otherwise elevated throughout the day - will increase to high dose sliding scale - continue Lantus - On discharge will resume his usual dose and follow up with Dr. Faustin as needed. # dyslipidemia # history of prostate cancer status post prostatectomy with ongoing urinary symptoms Disposition- Patient to transfer to [facility] for rehab after this hospitalization - daughter in agreement with plan I have discussed the case with RN - we will medically clear the patient so that he can have switch crew supervisor evaluation in the ICU Subjective: denies pain Objective: Vital Signs Temp Pulse Resp BP Pulse Ox 36.7 C 68 16 104/53 L 97 11/25/16 08:00 11/25/16 12:00 11/25/16 12:00 11/25/16 12:00 11/25/16 12:00 Laboratory Results 11/25/16 04:50 11/24/16 04:38 11/24/16 11/25/16 11/26/16 05:59 05:59 05:59 Intake Total 200 3275 Output Total 200 1000 Balance 0 2275 PT 15.9 SEC (12.0-15.0) H 11/21/16 05:50 INR 1.27 (0.83-1.16) H 11/21/16 05:50 - Physical Exam Constitutional: appears nourished Eyes: anicteric sclera Ears, Nose, Mouth, Throat: moist mucous membranes Cardiovascular: regular rate and rhythym Respiratory: no respiratory distress, no rales or rhonchi Gastrointestinal: normoactive bowel sounds Genitourinary: no bladder fullness Skin: warm, normal color Musculoskeletal: No asymmetric calves Neurologic: No AAOx3 Psychiatric: interacting appropriately, No agitated Lymph, Heme, Immunologic: no cervical LAD ICD10 Worksheet Patient Problems: Problems Problem Status Onset Atrial flutter with rapid ventricular response Acute GI bleed Acute Hyperglycemia Acute Hyperkalemia Acute Lactic acid acidosis Acute Transfusion of blood during current hospitalization Acute Atrial flutter Acute Bradycardia Acute Syncope Acute
[2016-11-25] MEDS: INSULIN LISPRO 100 UNIT/ML SC SCH (17:48)
[2016-11-25] MEDS: OXYBUTYNIN 5 MG EXT REL TAB PO SCH (19:55)
[2016-11-26 04:47] LABS: HEMATOCRIT 21.8 % (40.0-51.0); HEMOGLOBIN 7.5 g/dL (13.7-17.5)
[2016-11-26 07:47] VITALS: BP 101/56; PULSE 99; RESP 14; TEMP 97.8; O2SAT 99
[2016-11-26] MEDS: INSULIN LISPRO 100 UNIT/ML SC SCH ×2 (08:22→11:34)
[2016-11-26] MEDS: PRAVASTATIN SODIUM 10 MG TAB PO SCH (08:42)
[2016-11-26] MEDS: PANTOPRAZOLE SODIUM 40 MG TAB PO SCH (08:42)
[2016-11-26] MEDS: INSULIN GLARGINE 100 UNITS/ML SYRINGE SC SCH (08:42)
[2016-11-26] MEDS: LISINOPRIL 5 MG TAB PO SCH (08:43)
--- NOTE | 2016-11-26 15:08 | HOSPPROG ---
Hospitalist Progress Note Assessment/Plan: 81-year-old admitted with hematemesis found to have antral ulcer and Bella- Sesay tear. His course is complicated by anticoagulation with Eliquis on admission. Had increased agitation since his endoscopy - confusion improving over past 48 hours # acute expression of suicidal ideation- patient evaluated by Psychiatry MD today patient denies suicidal ideation or depressive symptoms - psychiatry recommending mirtazapine rather than seroquel as should help with insomnia as well - start mirtazapine 7.5 mg HS # Suspected baseline cognitive deficit exacerbated by hospitalization and sedation- avoided sedating medications for sleep remains disrupted overnight- however far more alert and oriented this am A&O x1 but awake and conversant- TSH and B12 normal - agree with plans for [place] care - continue Minimizing other centrally acting medications # Acute upper GI bleed status post endoscopy - with antral ulcer and possible Bella Sesay tear -Low risk for rebleed - H pylori negative- hemoglobin down to 7 this morning - continue twice daily Protonix for at least 8 weeks - continue to hold aspirin and Eliquis # history of AFib/flutter status post pacemaker placement on long-term Eliquis tele (personally reviewed and interpreted) A sensed V-paced- oxygen saturations 95% on RA - will restart after discharge. - He should follow up with his primary care provider and club car attendant Dr. Savage to discuss long-term anticoagulation. - Dr. Leon feels he should be on long-term acid suppression with an H2 kelly if he remains on anticoagulation. # coronary artery disease status post CABG currently on aspirin daily. This could potentiate his ulcer risk. - Could discuss with Dr. Savage his club car attendant regarding ongoing aspirin versus changing to Plavix. - will resume after discharge - until he sees Dr. Savage in follow-up. # hypertension- blood pressures systolic in the 100s - DC lisinopril # diabetes, blood sugars 99-> 350 overnight - morning blood sugar is appropriate patient's sugars otherwise elevated throughout the day - will increase to high dose sliding scale - continue Lantus # dyslipidemia # history of prostate cancer status post prostatectomy with ongoing urinary symptoms Disposition- Patient to transfer to [facility] potentially tomorrow - daughter in agreement with plan I have discussed the case with RN - will transfuse 1 unit packed red blood cells prior to disposition Subjective: denies pain Objective: Vital Signs Temp Pulse Resp BP Pulse Ox 36.6 C 99 14 101/56 L 99 11/26/16 07:45 11/26/16 07:45 11/26/16 07:45 11/26/16 07:45 11/26/16 07:45 Laboratory Results 11/26/16 04:30 11/24/16 04:38 11/25/16 11/26/16 11/27/16 05:59 05:59 05:59 Intake Total 3275 800 Output Total 1000 Balance 2275 800 PT 15.9 SEC (12.0-15.0) H 11/21/16 05:50 INR 1.27 (0.83-1.16) H 11/21/16 05:50 - Physical Exam Constitutional: chronically ill appearing Eyes: anicteric sclera Ears, Nose, Mouth, Throat: moist mucous membranes Cardiovascular: regular rate and rhythym Respiratory: no respiratory distress, no rales or rhonchi Gastrointestinal: normoactive bowel sounds, soft, non-tender abdomen Genitourinary: no bladder fullness Skin: warm, normal color Musculoskeletal: No asymmetric calves Neurologic: AAOx3 Psychiatric: interacting appropriately, not anxious Lymph, Heme, Immunologic: no cervical LAD ICD10 Worksheet Patient Problems: Problems Problem Status Onset Atrial flutter with rapid ventricular response Acute GI bleed Acute Hyperglycemia Acute Hyperkalemia Acute Lactic acid acidosis Acute Transfusion of blood during current hospitalization Acute Atrial flutter Acute Bradycardia Acute Syncope Acute
--- NOTE | 2016-11-26 16:25 | PDIAF ---
- Diagnosis Diagnosis: ugib Code Status: Do Not Resuscitate - Medication Management Discharge Medications: Medications to Continue on Transfer Apixaban [Eliquis] 5 mg PO BID 02/03/16 [Last Taken 11/19/16] Aspirin [Aspirin 81mg (*)] 81 mg PO DAILY 02/03/16 [Last Taken 11/19/16] Insulin Glargine [Lantus 100 UNITS/ML (*)] 32 units SC DAILY 02/03/16 [Last Taken 11/19/16] Oxybutynin Chloride [Ditropan Xl] 10 mg PO HS 02/03/16 [Last Taken 11/19/16] Pravastatin Sodium [Pravachol] 5 mg PO DAILY 02/03/16 [Last Taken 03/11/16 19:00 ] metFORMIN HCL [Glucophage 500 mg (*)] 1,000 mg PO BIDMEAL 02/03/16 [Last Taken 11/19/16] Acetaminophen [Tylenol ES 500 mg (*)] 1,000 mg PO HS 11/20/16 [Last Taken ] Lisinopril [Zestril 5 mg (*)] 5 mg PO DAILY 11/20/16 [Last Taken 11/19/16] Discharge Medications: Refer to the Discharge Home Medication list for PRN reason. - Orders Services needed: Registered Nurse, Physical Therapy, Occupational Therapy Diet Recommendation: cardiac -low fat low salt Diet Texture: Regular Texture Diet - Follow Up Care Current Providers and Referrals: Patient,NotPresent [Unknown] - As per Instructions
--- NOTE | 2016-11-26 17:28 | GDS ---
[f rep st] DISCHARGE SUMMARY DISCHARGE DIAGNOSES: 1. Acute upper gastrointestinal bleed secondary to antral ulcerations and possible Bella-Sesay te ar. 2. Suspected baseline cognitive deficits. 3. Acute encephalopathy thought secondary to baseline cognitive deficits and acute hospitalized del irium. 4. History of atrial fibrillation with permanent pacemaker. 5. Coronary artery disease. 6. Hypertension. 7. Diabetes. HISTORY OF PRESENT ILLNESS: This is a 81-year-old male with multiple medical comorbidities, who pre sents with acute GI bleed. For details of patient's initial presentation, please see the history an d physical dated 11/26/2016. Consultative services include: 1. Gastroenterology. 2. Cardiology. PROCEDURES: On 11/21/2016, patient had EGD which showed antral ulcerations and esophagitis versus M allory-Sesay tear. HOSPITAL COURSE BY ISSUE: 1. Acute upper gastrointestinal bleed. The patient had his aspirin and Eliquis held. Received blo od transfusion and was taken for EGD. Was initiated on b.i.d. PPI with resolution of his acute blee ding. The patient will continue on b.i.d. PPI. It is recommended by Gastroenterology that if Eliqu is and/or aspirin need to be re-initiated that high-dose acid suppression continue ongoing. 2. Permanent atrial fibrillation. Patient's Eliquis has been held in the setting of acute GI bleed . We recommend it be re-initiated in the next 1-2 weeks after his H and H remain stable. 3. Coronary artery disease. Patient did not have any complaints of active chest pain. As above, h as had his aspirin held. Continued on statin therapy and again should have aspirin re-initiated in the next 1-2 weeks with monitoring of his H and H in the [facility]. 4. Suspected underlying cognitive deficits. The patient clearly has cognitive deficiencies on exam ination. We had inpatient Psychiatry evaluate the patient as we were concerned some of his acute de lirium and expression of the depressive symptoms may be interrelated. They recommended the initiati on of mirtazapine in the evening time since suspect that his cognitive deficits may be more related to his medical comorbidities than a true underlying Alzheimer dementia. Patient was alert and orien marie times 1-2 consistently in the last 48 hours of his stay. Will start mirtazapine to begin in the [facility]. Can be followed by their on staff physician. He has been cooperative with care and is safe for disposition. 5. Hypertension. Patient was on low-dose lisinopril and was noted to have lower blood pressures du ring this hospital stay. We are holding his 5 mg of lisinopril at disposition as his systolic blood pressures are in the 100s on the day of discharge. Suspect as he further recovers from his acute G I bleed, we may see a rebound of his hypertension. Lisinopril 5 can be restarted by the outpatient physician if this occurs. 6. Diabetes. Patient had real fluctuations in his glycemic control from a.m. sugars in the 70s to 90s to postprandial blood sugars of greater than 300. We are sending him on a lower than outpatient dose of his long-acting insulin as his morning sugars have been quite low. Suspect again as he rec overs more from his acute illness and his oral intake increases, he can be up titrated on his long-a cting insulin. 7. Dyslipidemia. Continued on his statin therapy. MEDICATIONS AT THE TIME OF DISPOSITION: Please reference medication reconciliation printed on 11/26. FOLLOWUP APPOINTMENTS: Include with his outpatient cardiology team after a disposition as well as o utpatient Gastroenterology. PENDING STUDIES: At the time of this dictation are none. TIME SPENT: I spent greater than 30 minutes in the planning and coordination of this discharge. /[id number]/MODL
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
[2016-11-26] MEDS ORDERED: MIRTAZAPINE 15 MG TAB PO SCH (21:00)
== END 2016-11-26 17:10 | DRG 368 ==
LOC: EDUNIT# → F2N 13:52 → F3E 11-21 17:51 → F2N 11-24 23:59
PROVIDERS: ADMIT Internal Medicine; ATTEND Internal Medicine
PROC: 0DB68ZX Excision of Stomach, Via Natural or Artificial Opening Endoscopic, Diagnostic (ICD-10-PCS; principal; 2016-11-26)
DX: K22.6 Gastro-esophageal laceration-hemorrhage syndrome (principal); K25.4 Chronic or unspecified gastric ulcer with hemorrhage; E11.65 Type 2 diabetes mellitus with hyperglycemia; G93.40 Encephalopathy, unspecified; D50.0 Iron deficiency anemia secondary to blood loss (chronic); E87.5 Hyperkalemia; I10 Essential (primary) hypertension; Z79.4 Long term (current) use of insulin; Z79.01 Long term (current) use of anticoagulants; Z79.82 Long term (current) use of aspirin; Z95.0 Presence of cardiac pacemaker; Z87.891 Personal history of nicotine dependence; Z95.1 Presence of aortocoronary bypass graft; Z85.46 Personal history of malignant neoplasm of prostate; F10.21 Alcohol dependence, in remission
CPT/HCPCS: 82607-90; 82947-QW; 96365; 96366; 97110-GP; 97116-GP; 97162-GP; 97165-GO; 97530-GO; 97532-GO; 97535-GO; G8978-GP-CK; G8979-GP-CJ; G8987-GO-CL; G8988-GO-CJ; J0171; J1815; J2001; J2353; J2405; J2704; J3430; P9016; P9017; P9035

== ENCOUNTER → 2016-12-13 | Outpatient (CLI) | payer OTHER | LOC: FIMAGING 16:09 | PROVIDERS: ATTEND Physician Assistant | DX: M79.89 Other specified soft tissue disorders (principal); R79.89 Other specified abnormal findings of blood chemistry ==

== ENCOUNTER → 2017-06-13 | Outpatient (CLI) | payer OTHER ==
[~2017-06-13] MED LIST: IOPAMIDOL (ISOVUE 370) 100 ML BTL IV ONE
== END ==
LOC: FIMAGING 10:55
PROVIDERS: ATTEND Internal Medicine Cardiovascular Disease
DX: I25.10 Atherosclerotic heart disease of native coronary artery without angina pectoris (principal); J43.2 Centrilobular emphysema; I89.0 Lymphedema, not elsewhere classified; R60.9 Edema, unspecified; J84.10 Pulmonary fibrosis, unspecified
CPT/HCPCS: 73206; Q9967

== ENCOUNTER 2018-08-10 02:59 | Observation (INO) | payer OTHER ==
[2018-08-10] MEDS ORDERED: ACETAMINOPHEN 500 MG TAB PO ONE (03:04)
--- NOTE | 2018-08-10 03:43 | EDPHY ---
H & P Stated Complaint: fall lower back pain Time Seen by Provider: 08/10/18 03:03 HPI/ROS: Chief Complaint: Fall, low back pain HPI: 83-year-old male had a mechanical fall this morning landing on his buttocks and lower back. Is complaining of low back pain. Patient denies loss of consciousness. He did not faint. He tripped and stumbled. He did not hit his head. No loss of consciousness. He is on Eliquis but is not able to tell me why. No abdominal pain. No nausea or vomiting. No leg pain or weakness. ROS: 10 systems were reviewed and were negative except those elements noted in the HPI. Social History: No smoking, no alcohol, no recreational drug use Family History: non-contributory Physical Exam: Gen: Awake, Alert, No Distress HEENT: Nose: no rhinorrhea Eyes: PERRLA, EOMI Mouth: Moist mucosa Neck: Supple, no JVD Chest: nontender, lungs clear to auscultation Heart: S1, S2 normal, no murmur Abd: Soft, non-tender, no guarding Back: no CVA tenderness, no midline tenderness moderate diffuse lower posterior pelvis tenderness along the bilateral SI joints and paraspinal muscles.. Patient also has ecchymosis in his left buttocks and posterior thigh Ext: no edema, non-tender Skin: no rash Neuro: CN II-XII intact, Sensation grossly intact, Strength 5/5 in bilateral upper and lower extremities - Personal History Current Tetanus/Diphtheria Vaccine: Unsure Current Tetanus Diphtheria and Acellular Pertussis (TDAP): Unsure - Medical/Surgical History Hx Asthma: No Hx Chronic Respiratory Disease: No Hx Diabetes: Yes Hx Cardiac Disease: Yes Hx Renal Disease: No Hx Cirrhosis: No Hx Alcoholism: Yes Hx HIV/AIDS: No Hx Splenectomy or Spleen Trauma: No Other PMH: HTN, CABG, DM2, chronic back pain, ostoearthritis, prostate ca with prostatectomy, hyperlipidemia, alcoholism, esophageal variciess, A flutter, SSS , PPM, syncope - Social History Smoking Status: Former smoker Constitutional: Initial Vital Signs Temperature (C) 36.7 C 08/10/18 03:04 Heart Rate 80 08/10/18 03:04 Respiratory Rate 16 08/10/18 03:04 Blood Pressure 178/77 H 08/10/18 03:04 O2 Sat (%) 93 08/10/18 03:04 O2 Delivery Mode Room Air Allergies/Adverse Reactions: Penicillins Allergy (Verified 08/10/18 03:06) Rash Home Medications: Medication Instructions Recorded metFORMIN HCL [Glucophage 500 mg 1,000 mg PO BIDMEAL 02/03/16 (*)] Insulin Glargine [Lantus 100 25 units SC DAILY #0 ml 11/26/16 UNITS/ML] Lantus 04/26/18 Co Q-10 08/10/18 Eliquis 08/10/18 Medical Decision Making - Diagnostics Imaging Results: No acute fractures identified on his lumbar spine or pelvis x-ray per my interpretation. Imaging: I viewed and interpreted images myself ED Course/Re-evaluation: 83-year-old male status post mechanical fall with low back pain. He has a history of chronic back pain with now an exacerbations has post fall. I do not appreciate any acute fractures. He is unable to ambulate secondary to pain. I did give him some acetaminophen. He cannot take ibuprofen as he has on Eliquis for atrial flutter. He lives it had assisted living at [facility]. He will need to be admitted for pain control. I have discussed with Dr. Crawford, hospitalist. He will admit to his service. I have ordered standard blood work. - Data Points Medications Given: Discontinued Medications Acetaminophen (Tylenol) 1,000 mg PO EDNOW ONE Stop: 08/10/18 03:05 Last Admin: 08/10/18 03:53 Dose: 1,000 mg Departure - Dep[facility]ure [facility] Clinical Impression: Back pain Condition: Fair Referrals: Flavio Li MD [Medical Doctor] - As per Instructions
[2018-08-10] MEDS ORDERED: ONDANSETRON 4 MG/2 ML VIAL IVP PRN (04:18)
[2018-08-10] MEDS ORDERED: ONDANSETRON DISINTEGRATING 4 MG TAB PO PRN (04:18)
--- NOTE | 2018-08-10 04:44 | PDGENHP ---
History and Physical - Chief Complaint Fall, back pain - History of Present Illness 83 yo M w/ hx of chronic back pain, DM, and AF presents after a fall. The patient was returning to his room from dinner when he slipped and fell. He denies head trauma or LOC. After the fall he noticed severe back pain so requested he be taken to the ED. Back pain is described as low back and central. He does note radiation down both legs. This is usual with him for his chronic back pain. He denies bowel/bladder issues or significant weakness. In the ED his evaluation has been unremarkable but he is unable to ambulate due to pain. He is being admitted for pain control and therapy evaluation. He takes Eliquis for AF and a combination of insulin glargine and metformin for DM. Case discussed with ED physician Dr. Garcia; records reviewed and summarized above. History Information - Allergies/Home Medication List Allergies/Adverse Reactions: Penicillins Allergy (Verified 08/10/18 03:06) Rash Home Medications: metFORMIN HCL [Glucophage 500 mg (*)] 1,000 mg PO BIDMEAL 02/03/16 [Last Taken 11/19/16] Lantus 04/26/18 [Last Taken Unknown] Co Q-10 08/10/18 [Last Taken Unknown] Eliquis 08/10/18 [Last Taken Unknown] I have personally reviewed and updated: family history, medical history - Past Medical History atrial fibrillation, diabetes type 2 - Surgical History Reports: pacemaker/AICD - Family History Positive for: cancer - Social History Smoking Status: Former smoker Review of Systems Review of Systems: ROS: 10pt was reviewed & negative except for what was stated in HPI & below Physical Exam Physical Exam: Temp Pulse Resp BP Pulse Ox 36.7 C 80 16 178/77 H 93 08/10/18 03:04 08/10/18 03:04 08/10/18 03:04 08/10/18 03:04 08/10/18 03:04 Constitutional: appears nourished, uncomfortable Eyes: PERRL, EOMI Cardiovascular: regular rate and rhythym, no murmur, rub, or gallop Respiratory: no respiratory distress, clear to auscultation Gastrointestinal: normoactive bowel sounds, soft, non-tender abdomen Skin: warm, normal color Musculoskeletal: full muscle strength, no joint effusions Neurologic: AAOx3, CN II-XII Intact Psychiatric: interacting appropriately, not anxious Assessment & Plan Assessment: 83 yo M w/ AF and DM presents with acute on chronic back pain after a mechanical fall. Plan: 1. Acute on chronic back pain - Acute exacerbation of chronic back pain due to fall. He has radiation of pain down both legs but he states this is usual for him. Strength evaluation in lower extremities is limited by pain at this time. He denies numbness or bowel/bladder dysfunction. XR L-spine (personally interpreted) does not reveal acute abnormality. - Admit for observation - Pain control with APAP 1g david TID + Tramadol PRN; escalate if necessary - Await final radiology interpretation of Xrays - PT/OT evaluations 2. Fall - Mechanical in nature; he denies head trauma or LOC. - PT/OT evaluations 3. AF - On apixaban for AC; s/p PPM. - Continue apixaban pending reconciliation 4. DM - Managed with metformin + insulin glargine 25 u qHS as outpatient. - Continue home meds pending reconciliation - Monitor BG ACHS, D50 IV PRN for hypoglycemia Diet - Regular Code - Full Ppx - apixaban Dispo - Admit under observation status
[2018-08-10] MEDS ORDERED: D50W 25 GM/50 ML SYR IVP PRN (04:49)
[2018-08-10 04:52] LABS: PLATELET COUNT 105 10^3/uL (150-400)
[2018-08-10] MEDS: traMADol 50 MG TAB PO PRN (05:45)
[2018-08-10] MEDS: ACETAMINOPHEN 500 MG TAB PO SCH ×3 (08:15→21:39)
[2018-08-10] MEDS: PIOGLITAZONE HCL 15 MG TAB PO SCH (14:18)
--- NOTE | 2018-08-10 14:43 | ASMTCMCOM ---
CM Note CM Note Notes: Pt is a 83 y/o man admitted for a fall. Therapies have been ordered and awaiting recommendation. Needs are TBD at this time. CM to follow. Plan: TBD Date Signed: 08/10/2018 02:42 PM Electronically Signed By:CHRISTOPHER Hernandez
[2018-08-10] MEDS: APIXABAN 2.5 MG TAB PO SCH (21:38)
[2018-08-10] MEDS: INSULIN GLARGINE 100 UNITS/ML UNIT SC SCH (21:39)
[2018-08-11] MEDS ORDERED: Herbals/Supplements -Info Only PO SCH (09:00)
[2018-08-11] MEDS ORDERED: LISINOPRIL 10 MG TAB PO SCH (09:00)
[2018-08-11] MEDS ORDERED: LISINOPRIL 5 MG TAB PO SCH (09:00)
[2018-08-11] MEDS: PIOGLITAZONE HCL 15 MG TAB PO SCH (09:59)
[2018-08-11] MEDS: APIXABAN 2.5 MG TAB PO SCH ×2 (09:59→21:52)
[2018-08-11] MEDS: LISINOPRIL 5 MG TAB PO SCH (10:00)
[2018-08-11] MEDS: MULTIVITAMINS 1 EACH TAB PO SCH (10:02)
[2018-08-11] MEDS: ASPIRIN 81 MG CHEWABLE TAB PO SCH (10:02)
[2018-08-11] MEDS: traMADol 50 MG TAB PO PRN ×3 (10:03→21:51)
[2018-08-11] MEDS: ACETAMINOPHEN 500 MG TAB PO SCH ×3 (10:03→21:52)
[2018-08-11] MEDS: INSULIN GLARGINE 100 UNITS/ML UNIT SC SCH ×2 (10:04→21:52)
--- NOTE | 2018-08-11 11:07 | HOSPPROG ---
Hospitalist Progress Note Assessment/Plan: 83 yo M w/ AF and DM presents with acute on chronic back pain after a mechanical fall. First encounter, chart reviewed. *Right pubic ramus fx -prefers no CT scan -reviewed his x rays w Dr Hand and he recommends WBAT -if pain should worsen, Dr Hand will evaluate -Alejandro is unable to sit up or get oob for me during my evaluation due to severe pain, suspect he will fall easily if he returns to [facility] *acute on chronic back pain -no bowel or bladder dysfunction -back x ray showed nothing acute *gait instability w fall -PT and OT recommended SNF *renal insuff -creat is higher than his baseline -recheck labs in a.m. *AF -Apixaban *DM -Actos + glargine insulin bid *Plan: Alejandro is unable to walk or move to go back to his [place], will need a SNF for rehab, appreciate ortho looking at his x ray. Recheck kidney function in a.m. Subjective: Alejandro wants to go home but says he is unable to walk without someone getting him up and assisting him Objective: Vital Signs Temp Pulse Resp BP Pulse Ox 36.8 C 79 18 149/60 H 92 08/11/18 08:00 08/11/18 08:00 08/11/18 08:00 08/11/18 10:00 08/11/18 08:00 Laboratory Results 08/10/18 04:40 08/10/18 04:35 08/10/18 08/11/18 08/12/18 05:59 05:59 05:59 Intake Total 0 Output Total 500 250 Balance -500 -250 - Physical Exam Constitutional: appears nourished Eyes: PERRL Ears, Nose, Mouth, Throat: hearing normal Cardiovascular: regular rate and rhythym Respiratory: no respiratory distress Gastrointestinal: normoactive bowel sounds Skin: warm Musculoskeletal: muscular tenderness, generalized weakness Neurologic: AAOx3 Psychiatric: interacting appropriately ICD10 Worksheet Patient Problems: Problems Problem Status Onset Back pain Acute Atrial flutter Acute Atrial flutter with rapid ventricular response Acute Bradycardia Acute GI bleed Acute Hyperglycemia Acute Hyperkalemia Acute Lactic acid acidosis Acute Syncope Acute Transfusion of blood during current hospitalization Acute
--- NOTE | 2018-08-11 15:26 | ASMTCMCOM ---
CM Note CM Note Notes: Spoke w/DRUG SAFETY COORDINATOR and pt, d/t to weakness needs SNF, pt not ambulating well. Has been to [facility] in the past, referral sent. DC Plan: SNF Date Signed: 08/11/2018 03:26 PM Electronically Signed By:Ruth Langford RN
--- NOTE | 2018-08-11 15:39 | PDMN ---
Medical Necessity Medical necessity: MCG: M63 back pain, fall unable to ambulate safely, weak, sig. pain with ambulation, ongoing PT, OT needed. status changed to INPT 08/11 for ongoing med nec. further monitoring of back pain and ongoing PT.OT
[2018-08-12] MEDS: traMADol 50 MG TAB PO PRN (03:57)
[2018-08-12] MEDS: APIXABAN 2.5 MG TAB PO SCH ×2 (08:25→21:47)
[2018-08-12] MEDS: ASPIRIN 81 MG CHEWABLE TAB PO SCH (08:25)
[2018-08-12] MEDS: MULTIVITAMINS 1 EACH TAB PO SCH (08:25)
[2018-08-12] MEDS: LISINOPRIL 5 MG TAB PO SCH (08:25)
[2018-08-12] MEDS: LIDOCAINE 4%/MENTHOL 1% PATCH TD SCH (08:34)
--- NOTE | 2018-08-12 09:33 | HOSPPROG ---
Hospitalist Progress Note Assessment/Plan: 83 yo M w/ AF and DM presents with acute on chronic back pain after a mechanical fall. *Right pubic ramus fx -prefers no CT scan -reviewed his x rays w Dr Hand and he recommends WBAT -if pain should worsen, Dr Hand will evaluate -will dc to [facility] *acute on chronic back pain -no bowel or bladder dysfunction -back x ray showed nothing acute *gait instability w fall -PT and OT recommended SNF *renal insuff -creat is higher than his baseline -Will gently hydrate *AF -Apixaban *DM -Actos + glargine insulin bid -held Acots today due to low glucose, decreased his long acting insulin *Plan: dc to [facility] tomorrow if stable, will recheck a chemistry panel in the a.m. Subjective: Alejandro wants to go home, but is reasonable about needing rehab. Objective: Vital Signs Temp Pulse Resp BP Pulse Ox 36.7 C 74 20 139/56 H 94 08/12/18 07:57 08/12/18 07:57 08/12/18 07:57 08/12/18 07:57 08/12/18 07:57 08/11/18 08/12/18 08/13/18 05:59 05:59 05:59 Intake Total 870 Output Total 250 Balance 870 -250 - Physical Exam Constitutional: appears nourished, uncomfortable Eyes: PERRL Ears, Nose, Mouth, Throat: hearing normal Respiratory: no respiratory distress Skin: warm Musculoskeletal: generalized weakness Neurologic: AAOx3 Psychiatric: interacting appropriately ICD10 Worksheet Patient Problems: Problems Problem Status Onset Back pain Acute Atrial flutter Acute Atrial flutter with rapid ventricular response Acute Bradycardia Acute GI bleed Acute Hyperglycemia Acute Hyperkalemia Acute Lactic acid acidosis Acute Syncope Acute Transfusion of blood during current hospitalization Acute
[2018-08-12] MEDS ORDERED: NS 1,000 ML IV SCH (10:00)
[2018-08-12] MEDS: ACETAMINOPHEN 500 MG TAB PO SCH ×3 (10:16→21:47)
[2018-08-12] MEDS: PIOGLITAZONE HCL 15 MG TAB PO SCH (10:19)
[2018-08-12] MEDS ORDERED: INSULIN GLARGINE 100 UNITS/ML UNIT SC SCH (10:55)
[2018-08-12] MEDS: INSULIN GLARGINE 100 UNITS/ML UNIT SC SCH ×3 (11:17→21:48)
[2018-08-12] MEDS ORDERED: PATCH REMOVAL 1 EA PATCH TD SCH (21:00)
[2018-08-13] MEDS: traMADol 50 MG TAB PO PRN (04:47)
[2018-08-13 07:47] VITALS: BP 114/59
[2018-08-13] MEDS: APIXABAN 2.5 MG TAB PO SCH (08:49)
[2018-08-13] MEDS: MULTIVITAMINS 1 EACH TAB PO SCH (08:50)
[2018-08-13] MEDS: LISINOPRIL 5 MG TAB PO SCH (08:50)
[2018-08-13] MEDS: LIDOCAINE 4%/MENTHOL 1% PATCH TD SCH (08:52)
--- NOTE | 2018-08-13 10:26 | HOSPPROG ---
Hospitalist Progress Note Assessment/Plan: 83 yo M w/ AF and DM presents with acute on chronic back pain after a mechanical fall. *Right pubic ramus fx -prefers no CT scan -reviewed his x rays w Dr Hand and he recommends WBAT -if pain should worsen, Dr Hand will evaluate -will dc to [facility] *acute on chronic back pain -no bowel or bladder dysfunction -back x ray showed nothing acute *gait instability w fall -PT and OT recommended SNF *renal insuff -creat is higher than his baseline -Will have him f/u with Nora Albarran, his PCP *AF -Apixaban *DM -Actos + glargine insulin bid -held Actos today -hypoglycemic again today, will change long acting to daily *Plan: dc to [facility] Subjective: Alejandro is feeling better today. Objective: Vital Signs Temp Pulse Resp BP Pulse Ox 36.9 C 69 16 114/59 L 95 08/13/18 07:43 08/13/18 07:43 08/13/18 07:43 08/13/18 07:43 08/13/18 07:43 Laboratory Results 08/13/18 08:18 08/12/18 08/13/18 08/14/18 05:59 05:59 05:59 Intake Total 870 827 Output Total 350 Balance 870 477 - Physical Exam Constitutional: no apparent distress, appears nourished, uncomfortable Eyes: PERRL Ears, Nose, Mouth, Throat: hearing normal Respiratory: no respiratory distress Skin: warm Musculoskeletal: generalized weakness Neurologic: AAOx3 Psychiatric: interacting appropriately ICD10 Worksheet Patient Problems: Problems Problem Status Onset Back pain Acute Atrial flutter Acute Atrial flutter with rapid ventricular response Acute Bradycardia Acute GI bleed Acute Hyperglycemia Acute Hyperkalemia Acute Lactic acid acidosis Acute Syncope Acute Transfusion of blood during current hospitalization Acute
--- NOTE | 2018-08-13 10:33 | PDIAF ---
- Diagnosis Diagnosis: r pubic ramus fx, diabetes, afib, chronic back pain Code Status: Full Code - Medication Management Discharge Medications: electronically signed and located in the Home Medication List. - Orders Services needed: Physical Therapy, Occupational Therapy Diet Recommendation: ADA 2000 consistent carb Activity/Weight Bearing Restrictions: wbat Additional Instructions: Lantus has been decrease to 15 units daily due to hypoglycemia Actos also has been discontinued due to low glucoses follow up w Nora Albarran your PCP and have your kidney function monitored If pain continues in your back; recommending a CT scan to further evaluate - Labs/Radiology BMP Date: 09/18/17 (call results to Nora Albarran) Other Lab Name, Date and Time: check glucoses QAC and QHS, patient has had some hypoglycemia - Follow Up Care Current Providers and Referrals: Flavio Li MD [Medical Doctor] - As per Instructions Nora Albarran PA [Primary Care Provider] -
[2018-08-13] MEDS: ACETAMINOPHEN 500 MG TAB PO SCH (11:00)
[2018-08-13] MEDS: ASPIRIN 81 MG CHEWABLE TAB PO SCH (11:21)
[2018-08-13] MEDS: INSULIN GLARGINE 100 UNITS/ML UNIT SC SCH (11:41)
--- NOTE | 2018-08-13 14:11 | GDS ---
DISCHARGE DIAGNOSES: 1. Right pubic ramus fracture. 2. Acute on chronic back pain. 3. Gait instability. 4. Renal insufficiency. 5. Atrial fibrillation. 6. Diabetes type 2. HISTORY OF PRESENT ILLNESS: Briefly, the patient is an 83-year-old male who resides at assisted living, who had a mechanical fall. He presented to the emergency room and had a back x-ray that showed nothing acute. Subsequently, he had a pelvic x-ray that showed a right pubic ramus fracture. The films were reviewed by Dr. Hand with Orthopedics, who recommended the patient be weightbearing as tolerated. Told the patient and his family if the pain worsens , he will need further imaging. The patient had declined getting a CT scan during his stay. HOSPITAL COURSE PER PROBLEM: 1. Right pubic ramus fracture. He will discharge to [facility] today. If the pain should worsen, he needs further imaging, but he was able to get out of bed today and shower. 2. Acute on chronic back pain. He has no bowel or bladder dysfunction. Back x -ray shows nothing acute. 3. Gait instability with fall. I am concerned that maybe his glucoses were low in the morning, that is why he fell. He has overall done well at the hospital. 4. Renal insufficiency. His creatinine is higher than his baseline. Will have him follow up with his primary care provider, Nora Albarran. 5. Atrial fibrillation, on oral anticoagulation. 6. Diabetes. I have discontinued the Actos and decreased his dose of long- acting due to being hypoglycemic. Will have the care home facility check his glucoses before meals and at bedtime. DISCHARGE CONDITION: Stable. Blood pressure is 114/59, heart rate is 69, respiratory rate is 16, O2 sats on room air 95%, temperature is 36.9 Celsius. MEDICATIONS AT DISCHARGE: Please see the EMR. DISCHARGE INSTRUCTIONS: 1. Lantus dose has been decreased to 15 units. 2. Actos has also been discontinued due to low glucoses. 3. Follow up with RUSTY Polk in regard to his kidney function. This will be checked this week at rehab. 4. If his pain continues, recommending to get a CT scan to further evaluate. Greater than 30 minutes spent discharging and coordinating the patient's care. /[id number]/MODL MTDD
--- NOTE | 2018-08-13 14:28 | ASMTCMCOM ---
CM Note CM Note Notes: CM met with Alejandro lynn to discharge today to [facility]. CM has talked with Cristal, transportation to be arranged for around 2pm. CM faxed discharge info to [phone]. IM delivered and signed for receipt discussed discharge with RN, [facility] [phone] to give report. CM available to support if any further needs arise. D/C Plan: D/C today to [facility]. Date Signed: 08/13/2018 02:28 PM Electronically Signed By:Taylor Sood
--- NOTE | 2018-08-13 14:33 | ASDISCHSUM ---
Discharge Information Plan Status:Has needs-TBD Medically Cleared to Leave:08/12/2018 Discharge Date:08/13/2018 02:24 PM CM D/C Disposition:[facility] ADT D/C Disposition:[facility] Facility Projected Discharge Date:08/13/2018 11:00 AM Transportation at D/C:Wheelchair Van Discharge Delay Reason: Follow-Up Date:08/13/2018 11:00 AM Discharge Slot:2 - 12:01 pm - 18:00 pm Final Diagnosis:R pubic ramus fracture, Acute on Chronic Back Pain Placement Information Referral Type:*Group Home/SNF Referral ID:[id number] Provider Name:[facility] Address 1:[address] Address 2: City:[place] Selection Factors: State:[place] Patient Contact Information Contact Name:CESILIA Relationship:Daughter Address: City:[place] Phone: State/Zip Code:[place] [address] Email: Financial Information Financial Class:Medicare Advantage Plans Primary Plan Desc:[facility] [place] Primary Plan Number:[id number] Secondary Plan Desc: Secondary Plan Number: Assessment Information [facility] CM Progress Note CM Note CM Note Notes: Pt is a 83 y/o man admitted for a fall. Therapies have been ordered and awaiting recommendation. Needs are TBD at this time. CM to follow. Plan: TBD Date Signed: 08/10/2018 02:42 PM Electronically Signed By:CHRISTOPHER Hernandez [facility] CM Progress Note CM Note CM Note Notes: Spoke w/MACHINE MAINTENANCE MECHANIC and pt, d/t to weakness needs SNF, pt not ambulating well. Has been to [facility] in the past, referral sent. DC Plan: SNF Date Signed: 08/11/2018 03:26 PM Electronically Signed By:Ruth Langford RN [facility] Progress Note CM Note CM Note Notes: CM met with patientAlejandro to discharge today to [facility]. CM has talked with Cristal, transportation to be arranged for around 2pm. CM faxed discharge info to [phone]. delivered and signed for receipt discussed discharge with RN, [facility] [phone] to give report. CM available to support if any further needs arise. D/C Plan: D/C today to [facility]. Date Signed: 08/13/2018 02:28 PM Electronically Signed By:Taylor Sood Intervention Information
== END 2018-08-13 14:24 | DRG 536 ==
LOC: EDUNIT# → F2W 05:03 → F3E 18:01 → OBSVTOIN 08-11 13:25 → INTOOBSV 08-11 13:25
PROVIDERS: ADMIT Student in an Organized Health Care Education/Training Program; ATTEND Student in an Organized Health Care Education/Training Program
DX: S32.591A Other specified fracture of right pubis, initial encounter for closed fracture (principal); N28.9 Disorder of kidney and ureter, unspecified; W01.0XXA Fall on same level from slipping, tripping and stumbling without subsequent striking against object, initial encounter; Y92.018 Other place in single-family (private) house as the place of occurrence of the external cause; G89.29 Other chronic pain; R26.89 Other abnormalities of gait and mobility; I48.91 Unspecified atrial fibrillation; E11.9 Type 2 diabetes mellitus without complications; I10 Essential (primary) hypertension; E78.5 Hyperlipidemia, unspecified; Z79.01 Long term (current) use of anticoagulants; Z79.84 Long term (current) use of oral hypoglycemic drugs; Z95.810 Presence of automatic (implantable) cardiac defibrillator; Z87.891 Personal history of nicotine dependence; Z95.1 Presence of aortocoronary bypass graft; Z85.46 Personal history of malignant neoplasm of prostate
CPT/HCPCS: 97116-GP; 97162-GP; 97166-GO; 97535-GO; G0378; G8978-GP-CJ; G8979-GP-CI; G8987-GO-CK; G8988-GO-CJ; J1815; J2270